=== PATIENT | female | born 2000 | race African-American/Black ===

== ENCOUNTER → 2022-03-31 14:11 | Outpatient (CLI) | payer OTHER, SELFPAY ==
[2022-03-31 17:09] LABS: Appearance Urine UA CLEAR; Bilirubin Urine UA NEGATIVE (NEGATIVE); Color Urine UA YELLOW; Glucose Urine UA NEGATIVE (Negative); Ketones Urine UA TRACE (NEGATIVE); Leukocyte Esterase Urine UA NEGATIVE (NEGATIVE); Nitrite Urine UA POSITIVE (Negative); Occult Blood Urine UA NEGATIVE (Negative); Protein Urine UA NEGATIVE (Negative); Urobilinogen Urine UA 0.2 E.U./dL (0.2)
[2022-03-31 17:10] LABS: Amorphous Sediment Urine 2+; Bacteria Urine Many (>30); RBC Urine None Seen (0-5/HPF); Squamous Epithelial Cell Urine 1-5 /HPF (0-5/HPF); WBC Urine 5-10/HPF (0-5/HPF)
[2022-03-31 18:05] LABS: Add Manual Diff / Slide Review NO; Basophils Absolute Auto 100 /uL (0-100); Basophils Percent Auto 1.4 % (0-2); Eosinophils Absolute Auto 100 /uL (0-450); Eosinophils Percent Auto 2.2 % (2-4); Hematocrit 33.4 % (36-46); Hemoglobin 10.8 g/dL (12.0-16.0); Lymphocytes Absolute Auto 2100 /uL (1100-4500); Lymphocytes Percent Auto 34.7 % (25-40); Mean Corpuscular HGB Conc 32.4 % (30-36); Mean Corpuscular Hemoglobin 25.8 PG (26-34); Mean Corpuscular Volume 79.5 fL (80-100); Monocytes Absolute Auto 800 /uL (0-900); Monocytes Percent Auto 12.9 % (3-14); Neutrophils Absolute Auto 3000 /uL (1500-7000); Neutrophils Percent Auto 48.8 % (50-75); Platelet Count 358 X10^3/uL (150-400); Red Blood Cell Count 4.19 X10^6/uL (4.0-5.2); Red Cell Distribution Width 17.6 % (11.6-14.8); White Blood Cell Count 6.1 X10^3/uL (4.5-11.0)
[2022-04-01 16:36] LABS: Hepatitis B Surface Antigen NEGATIVE s/c (NEGATIVE); Rubella Antibody IgG 6.8 IU/mL (>15)
[2022-04-01 16:51] LABS: HIV 1 & 2 Ab/Ag 4th Gen Combo NEGATIVE (NEGATIVE); Hep C Virus Ab w/Reflex Quant NEGATIVE s/c (NEGATIVE)
[2022-04-02 07:18] LABS: RPR Screen Non Reactive (Non Reactive); Varicella IgG Antibody 521 index (Immune >165)
== END ==
PROVIDERS: Referring Provider Obstetrics & Gynecology; Visit Provider Obstetrics & Gynecology
DX: Z34.01 Encounter for supervision of normal first pregnancy, first trimester (principal)
CPT/HCPCS: 36415; 80055; 81003; 81015; 86787; 86803; 86850; 86900; 86901; 87077; 87086; 87186; 87389

== ENCOUNTER → 2022-04-12 09:14 | Outpatient (CLI) | payer OTHER, SELFPAY ==
--- NOTE | 2022-04-12 09:17 | DI.US.S_ITS ---
PROCEDURE: US OB <= 14 WEEKS FETUS INDICATIONS: DATING OUTSIDE/PRIOR DATING DATA: Last menstrual period (LMP): 02/13/2022. LMP-based estimated date of delivery (RADHA): 11/20/2022. First dating scan (date and location): 04/12/2022. Estimated date of delivery (RADHA) from first dating scan: 11/18/2022. The calculations are made using the working RADHA of 11/20/2022. TECHNIQUE: Real-time scanning was performed of the fetus and maternal pelvic organs, with image documentation. Endovaginal scanning was also performed to better visualize the fetus and maternal ovaries. COMPARISON: None. FINDINGS: Embryo: There is a gestational sac in the uterine fundus containing a fetus with a crown-rump length of 2 centimeters. This corresponds to a gestational age of 8 weeks 4 days. heart rate is 168 beats per minute. The amnion demonstrates diffuse lacy internal echoes. Yolk sac noted. IMPRESSION: Single living intrauterine gestation with estimated gestational age 8 weeks 4 days. There is considerable intra-amniotic debris, which is an independent risk factor for early pre term in the 1st , and is also a risk factor for loss. We strive to produce accurate, complete, and clear reports of imaging services. To assist us in improving patient care, this report was composed using standard report templates and voice recognition software. Therefore, it may contain abnormal punctuation, insertions and/or omissions. Occasional wrong-word or sound-alike substitutions may occur. Though we review the report and make efforts to correct it, we do recommend that the report be read carefully in proper context to recognize any text inaccuracies. Dictated by: Sherif Bonilla M.D. on 04/12/2022 at 11:11 Approved by: Sherif Bonilla M.D. on 04/12/2022 at 11:15
== END ==
PROVIDERS: Referring Provider Obstetrics & Gynecology; Visit Provider Obstetrics & Gynecology
DX: Z34.01 Encounter for supervision of normal first pregnancy, first trimester (principal); Z3A.08 8 weeks gestation of pregnancy
CPT/HCPCS: 76801; 76817

== ENCOUNTER → 2022-05-10 11:29 | Outpatient (CLI) | payer OTHER, SELFPAY ==
[2022-05-10 13:35] LABS: Urine N gonorrhoeae NOT DETECTED
[2022-05-10 13:36] LABS: Urine Chlamydia NOT DETECTED
== END ==
PROVIDERS: Visit Provider Obstetrics & Gynecology
DX: Z34.01 Encounter for supervision of normal first pregnancy, first trimester (principal); Z3A.12 12 weeks gestation of pregnancy
CPT/HCPCS: 87491; 87591

== ENCOUNTER → 2022-05-14 15:41 | Outpatient (CLI) | payer OTHER, SELFPAY ==
[2022-05-14 16:22] LABS: Hematocrit 36.1 % (36-46); Hemoglobin 11.9 g/dL (12.0-16.0); Mean Corpuscular HGB Conc 32.9 % (30-36); Mean Corpuscular Hemoglobin 27.2 PG (26-34); Mean Corpuscular Volume 82.8 fL (80-100); Platelet Count 331 X10^3/uL (150-400); Red Blood Cell Count 4.36 X10^6/uL (4.0-5.2); Red Cell Distribution Width 19.6 % (11.6-14.8); White Blood Cell Count 5.6 X10^3/uL (4.5-11.0)
[2022-05-14 16:50] LABS: HEMOLYSIS < 15 (0-50); Iron 139 ug/dL (37-170)
[2022-05-14 17:00] LABS: Percent Iron Saturation 41 % (15-50); Total Iron Binding Capacity 342 ug/dL (265-497); Transferrin 283 mg/dL (206-381)
[2022-05-25 16:28] LABS: Interpretation INTERP
[2022-05-25 16:31] LABS: Hemoglobin Free 0.6 mg/dl
== END ==
PROVIDERS: Referring Provider Obstetrics & Gynecology; Visit Provider Obstetrics & Gynecology
DX: O99.019 Anemia complicating pregnancy, unspecified trimester (principal); R71.8 Other abnormality of red blood cells
CPT/HCPCS: 36415; 83021; 83051; 83540; 83550; 85027

== ENCOUNTER → 2022-06-07 11:26 | Outpatient (CLI) | payer OTHER, SELFPAY | PROVIDERS: Visit Provider Obstetrics & Gynecology | DX: Z34.02 Encounter for supervision of normal first pregnancy, second trimester (principal); Z3A.16 16 weeks gestation of pregnancy | CPT/HCPCS: 87077; 87086; 87186 ==

== ENCOUNTER → 2022-07-15 15:12 | Outpatient (CLI) | payer OTHER, SELFPAY ==
--- NOTE | 2022-07-15 15:13 | DI.US.S_ITS ---
PROCEDURE: US OB >= 14 WEEKS FETUS INDICATIONS: 20 Week Anatomy Scan OUTSIDE/PRIOR DATING DATA: Last menstrual period (LMP): February 13, 2022. LMP-based estimated date of delivery (RADHA): November 20, 2022. First dating scan (date and location): April 12, 2022. Estimated date of delivery (RADHA) from first dating scan: November 18, 2022. The calculations are made using the clinical RADHA of November 20, 2022. TECHNIQUE: Real-time scanning was performed of the fetus, with image documentation and biometric measurements. Endovaginal scanning: Not performed COMPARISON: None. FINDINGS: General: A single living intrauterine gestation is present. Presentation: Vertex. Placenta: Placental position is anterior , without previa. Amniotic fluid index: 13.7 cm, normal range is 5-24 cm. Single deepest vertical pocket is 4.1 cm. heart rate: 160 beats per minute. Maternal cervical canal: 4.6 cm long. Normal lower limit is 2.5 cm. biometrics: Biparietal diameter: 5.0 cm, 21 weeks and 2 days Head circumference: 18.6 cm, 20 weeks and 6 days Abdominal circumference: 15.6 cm, 20 weeks and 5 days Femur length: 4.0 cm, 23 weeks and 0 days Clinically estimated gestational age: 21 weeks and 5 days Composite gestational age from present scan: 21 weeks and 3 days Estimated weight and percentile: 441 g which correlates with the 41st percentile based off gestational age. Anatomic survey: Neuro: Ventricles are non-dilated at less than 10 mm. Cisterna magna is normal at 3-11 mm. Cerebellum is normal in size and morphology. Nuchal skin fold: Normal at less than 6 mm between 14-21 weeks gestational age. Face: Nose and lips appear unremarkable. facial profile not well visualized. Spine: No evidence for spina bifida. Heart: 4-chambered heart is present, with normal ventricular outflow tracts. Diaphragm: Diaphragm is intact. Stomach: Left-sided stomach is present. Kidneys: No hydronephrosis. Normal is less than 5 mm in 2nd trimester, less than 7 mm in 3rd trimester. Cord: 3-vessel cord has orthotopic insertion. Bladder: Normal in size. Extremities: All 4 extremities identified. IMPRESSION: Single living intrauterine gestation with estimated sonographic gestational age of approximately 21 weeks and 3 days versus approximately 21 weeks and 5 days based last menstrual period. Normal interval growth has occurred. Estimated weight of approximately 441 g which correlates with the 41st percentile. facial profile not well visualized on this examination. Otherwise, unremarkable routine second-trimester anatomy screening survey. Follow-up imaging recommended. We strive to produce accurate, complete, and clear reports of imaging services. To assist us in improving patient care, this report was composed using standard report templates and voice recognition software. Therefore, it may contain abnormal punctuation, insertions and/or omissions. Occasional wrong-word or sound-alike substitutions may occur. Though we review the report and make efforts to correct it, we do recommend that the report be read carefully in proper context to recognize any text inaccuracies. Dictated by: Alfa Block M.D. on 07/16/2022 at 8:38 Approved by: lAfa Block M.D. on 07/16/2022 at 8:42
== END ==
PROVIDERS: Referring Provider Obstetrics & Gynecology; Visit Provider Obstetrics & Gynecology
DX: Z34.02 Encounter for supervision of normal first pregnancy, second trimester (principal); Z3A.21 21 weeks gestation of pregnancy
CPT/HCPCS: 76811

== ENCOUNTER → 2022-08-19 16:12 | Outpatient (CLI) | payer OTHER, SELFPAY ==
[2022-08-19 17:41] LABS: Hematocrit 35.5 % (36-46); Hemoglobin 11.8 g/dL (12.0-16.0)
[2022-08-19 18:02] LABS: GTT (PREG) 1 Hour PP 50gm Dose 80 mg/dL (76-139)
== END ==
PROVIDERS: Referring Provider Obstetrics & Gynecology; Visit Provider Obstetrics & Gynecology
DX: Z34.02 Encounter for supervision of normal first pregnancy, second trimester (principal); Z3A.22 22 weeks gestation of pregnancy
CPT/HCPCS: 36415; 82950; 85014; 85018

== ENCOUNTER → 2022-09-06 14:52 | Outpatient (CLI) | payer OTHER, SELFPAY ==
[2022-09-06 15:08] LABS: Appearance Urine UA CLOUDY; Bilirubin Urine UA NEGATIVE (NEGATIVE); Color Urine UA YELLOW; Glucose Urine UA NEGATIVE (Negative); Ketones Urine UA NEGATIVE (NEGATIVE); Leukocyte Esterase Urine UA 2+ (NEGATIVE); Nitrite Urine UA NEGATIVE (Negative); Occult Blood Urine UA NEGATIVE (Negative); Protein Urine UA TRACE (Negative); Specific Gravity Urine UA 1.015 (1.000-1.035); Urobilinogen Urine UA 0.2 E.U./dL (0.2)
[2022-09-06 15:30] LABS: pH Urine UA 7.5 (4.5-8.0)
[2022-09-06 15:32] LABS: Bacteria Urine Few (2-10); Culture Indicated Urine Specimen Cultured; RBC Urine 0-1/HPF (0-5/HPF); Renal Epithelial Cells Urine 1-5/HPF (0-1/HPF); Squamous Epithelial Cell Urine 1-5 /HPF (0-5/HPF); Transitional Epi Cells Urine 1-5/HPF (0-5/HPF); WBC Urine 10-30/HPF (0-5/HPF)
== END ==
PROVIDERS: Referring Provider Specialist; Visit Provider Specialist
DX: Z34.01 Encounter for supervision of normal first pregnancy, first trimester (principal); R30.0 Dysuria
CPT/HCPCS: 81001; 87077; 87086; 87186

== ENCOUNTER → 2022-09-30 16:02 | Outpatient (CLI) | payer OTHER, SELFPAY | PROVIDERS: Visit Provider Obstetrics & Gynecology | DX: Z91.89 Other specified personal risk factors, not elsewhere classified (principal) | CPT/HCPCS: 87086 ==

== ENCOUNTER 2022-10-07 13:34 | Emergency (ER) | payer OTHER, SELFPAY ==
[2022-10-07 13:41] VITALS: BP 135/69; PULSE 105; RESP 15; TEMP 36.9; O2SAT 99; BMI 29.3
--- NOTE | 2022-10-07 13:59 | DI.US.S_ITS ---
PROCEDURE: US RENAL COMPLETE INDICATIONS: nephrolithiasis? pyelo? 8 months TECHNIQUE: Real-time scanning was performed of the kidneys and bladder, with image documentation. COMPARISON: None. FINDINGS: Kidneys: Kidneys are normal in size. Right kidney measures 12.3 cm long; left kidney measures 12.0 cm long. Right renal cortical thickness is 1.5 cm; left renal cortical thickness is 1.7 cm. Renal cortical echotexture is normal. Specifically, no suspicious areas of cortical echogenicity to suggest renal abscess. No perinephric fluid collections. No hydronephrosis or nephrolithiasis. No suspicious solid mass lesions. Bladder: Pre-void bladder volume is 17.9 mL. The patient was unable to void. Pre-void images demonstrate no intraluminal masses or stones. On pre-void images, bilateral ureteral jets are noted with color Doppler interrogation. (Of note, ureteral jets may not be detectable in up to 25% of cases due to insufficient differences in specific gravity between ureteral and bladder urine). Miscellaneous: No free pelvic fluid. IMPRESSION: 1. No sonographic evidence of nephrolithiasis or obstructive uropathy. 2. No sonographic evidence of renal abscess. Dictated by: Rody Dhillon M.D. on 10/07/2022 at 16:01 Approved by: Rody Dhillon M.D. on 10/07/2022 at 16:03
--- NOTE | 2022-10-07 14:01 | ED_ITS ---
HPI - Female Genitourinary <Mikaela Porras, [facility] - Last Filed: 10/07/22 16:07> General Chief complaint: Upper Respiratory Symptoms Stated complaint: Flu Sx Time Seen by Provider: 10/07/22 13:47 Source: patient Mode of arrival: Ambulatory History of Present Illness HPI Narrative: This is a 21-year-old female who is 8 and presents to the emergency department 2 days of nausea, vomiting, upper respiratory congestion, bilateral ear pain and fullness, and chills. She states she has not measured a fever, d enies any abdominal pain, denies low back pain flank pain, had a urinary tract infection a 09/06 grew E coli, was pansensitive, she is had 2 other urinary tract infections before this during this . She is not currently on antibiotics. Has a history of chlamydia infection from 2020. Patient was seen by Dr. Ceron on 09/30/2022 with a urine culture that grew out lactobacillus species. She did not receive another antibiotic prescription. Rubella not indicated. History of anemia on prior lab work. Most recent H&H is 11.8 and 35.5 from 08/19/2022. She denies flank pain, endorses occasional low back but did not have vomiting start until yesterday. Denies nausea at this time but states that she had vomiting this morning. Denies abnormal vaginal discharge. She states that she is been taking Robitussin for her congestion and cough. Denies shortness of breath, chest pain, difficulty breathing. Related Data Home Medications Medication Instructions Recorded Confirmed prenat.vits,daniel,[id number] 1 tab PO DAILY 03/30/22 09/30/22 Previous Rx's Medication Instructions Recorded prochlorperazine maleate 5 mg 5 mg PO Q8H PRN nausea and 05/11/22 tablet vomiting #20 tabs cefpodoxime 100 mg tablet 100 mg PO Q12H #10 tabs 09/08/22 amoxicillin 875 mg-potassium 1 tab PO BID 10 days #20 tabs 10/07/22 clavulanate 125 mg tablet cetirizine 10 mg capsule (Zyrtec) 10 mg PO DAILY PRN congestion #30 10/07/22 caps ondansetron 4 mg disintegrating 4 mg PO Q8H PRN nausea and 10/07/22 tablet vomiting #10 tabs Allergies Allergy/AdvReac Type Severity Reaction Status Date / Time Sulfa (Sulfonamide Allergy Intermediate Hives Verified 10/07/22 13:44 Antibiotics) Review of Systems <LULA Guardado - Last Filed: 10/07/22 16:07> Review of Systems ROS Unobtainable: All systems reviewed & are unremarkable except as noted in HPI and below Patient History <LULA Guardado - Last Filed: 10/07/22 16:07> Medical History Healthy adult Surgical History No pertinent past surgical history Family History Grandmother Multiple sclerosis Mother Heart attack Lung disease Hypertension Grandfather Heart disease Hypertension Kidney failure Diabetes mellitus Hyperlipidemia Father Healthy adult Grandmother Chronic bronchitis Grandmother Hyperlipidemia Hypertension Grandmother Multiple sclerosis alcohol intake frequency: holidays/special occasions only Substance Use Type: does not use Exam <LULA Guardado - Last Filed: 10/07/22 16:07> Narrative Exam Narrative: Reviewed vitals signs and nursing notes. General: Pleasant, sitting upright, in no acute distress, well groomed, afebrile HEENT: symmetrical facial expressions, dry mucous membranes, neck is supple bilateral TMs are pearly [place], no anterior cervical lymphadenopathy, congestion present, no sinus tenderness to palpation CV: Without lower extremity edema, S1-S2, mild tachycardia, warm extremities Respiratory: normal work of breathing, without tachypnea or hypoxia. GI: abdomen gravid, without CVA tenderness bilaterally MSK: moves all extremities, no weakness, normal tone, ambulatory without deficit Skin: brisk capillary refill, without rash or wound Neuro: normal speech and cognition, A&O x3 Initial Vital Signs Initial Vital Signs: Vital Signs Temperature 98.5 F 10/07/22 13:41 Pulse Rate 105 H 10/07/22 13:41 Respiratory Rate 15 10/07/22 13:41 Blood Pressure 135/69 10/07/22 13:41 Pulse Oximetry 99 10/07/22 13:41 Oxygen Delivery Method Room Air 10/07/22 13:41 <Kirby Fong DO - Last Filed: 10/07/22 19:45> Initial Vital Signs Initial Vital Signs: Vital Signs Temperature 98.5 F 10/07/22 13:41 Pulse Rate 105 H 10/07/22 13:41 Respiratory Rate 15 10/07/22 13:41 Blood Pressure 135/69 10/07/22 13:41 Pulse Oximetry 99 10/07/22 13:41 Oxygen Delivery Method Room Air 10/07/22 13:41 Course <LULA Guardado - Last Filed: 10/07/22 16:07> Orders Ordered: ED Orders 10/07/22 13:50 Chlamydia Gonorrhea PCR -URINE Stat Urine Culture Stat 10/07/22 13:52 UA Complete [Urinalysis and Microscopic] Stat 10/07/22 13:59 US renal complete Stat 10/07/22 14:07 CBC Auto Diff [Complete Blood Count AUTO DIFF] Stat CMP [Comprehensive Metabolic Panel] Stat CRP [C-Reactive Protein Quant] Stat Lipase Stat Magnesium Stat Respiratory Panel (Film Array) Stat 10/07/22 15:46 Wet Prep Tric BV Sangeeta Stat Discontinued Medications Amoxicillin/Clavulanate Potassium (Amoxicillin/Clav 875/125 Mg) 1 tab PO NOW ONE Stop: 10/07/22 14:08 Last Admin: 10/07/22 14:17 Dose: 1 tab Documented By: PRASAD Lactated Ringer's (Lactated Ringers) 1,000 mls @ 1,000 mls/hr IV BOLUS ONE Stop: 10/07/22 14:51 Last Infusion: 10/07/22 15:36 Dose: 0 mls/hr Documented By: Admin: 10/07/22 14:05 Dose: 1,000 mls/hr Documented By: AT Ondansetron HCl (Ondansetron 4 Mg/2 Ml Inj) 4 mg IV NOW ONE Stop: 10/07/22 13:53 Last Admin: 10/07/22 14:06 Dose: Not Given Documented By: AT Vital Signs Vital signs: Vital Signs - 8 hr 10/07/22 13:41 10/07/22 15:45 Temperature 98.5 F Pulse Rate 105 H 98 H Respiratory Rate 15 Blood Pressure 135/69 129/69 Pulse Oximetry 99 100 Oxygen Delivery Method Room Air Room Air <Kirby Fong DO - Last Filed: 10/07/22 19:45> Orders Ordered: ED Orders 10/07/22 13:50 Chlamydia Gonorrhea PCR -URINE Stat Urine Culture Stat 10/07/22 13:52 UA Complete [Urinalysis and Microscopic] Stat 10/07/22 13:59 US renal complete Stat 10/07/22 14:07 CBC Auto Diff [Complete Blood Count AUTO DIFF] Stat CMP [Comprehensive Metabolic Panel] Stat CRP [C-Reactive Protein Quant] Stat Lipase Stat Magnesium Stat Respiratory Panel (Film Array) Stat 10/07/22 15:46 Wet Prep Tric BV [place] Stat Discontinued Medications Amoxicillin/Clavulanate Potassium (Amoxicillin/Clav 875/125 Mg) 1 tab PO NOW ONE Stop: 10/07/22 14:08 Last Admin: 10/07/22 14:17 Dose: 1 tab Documented By: PRASAD Lactated Ringer's (Lactated Ringers) 1,000 mls @ 1,000 mls/hr IV BOLUS ONE Stop: 10/07/22 14:51 Last Infusion: 10/07/22 15:36 Dose: 0 mls/hr Documented By: Admin: 10/07/22 14:05 Dose: 1,000 mls/hr Documented By: AT Ondansetron HCl (Ondansetron 4 Mg/2 Ml Inj) 4 mg IV NOW ONE Stop: 10/07/22 13:53 Last Admin: 10/07/22 14:06 Dose: Not Given Documented By: AT Vital Signs Vital signs: Vital Signs - 8 hr 10/07/22 13:41 10/07/22 15:45 Temperature 98.5 F Pulse Rate 105 H 98 H Respiratory Rate 15 Blood Pressure 135/69 129/69 Pulse Oximetry 99 100 Oxygen Delivery Method Room Air Room Air MDM - Female Genitourinary <Mikaela Porras, [facility] - Last Filed: 10/07/22 16:07> Lab Data 10/07/22 14:07 10/07/22 14:07 Labs: Lab Results 10/07/22 10/07/22 10/07/22 Range/Units 13:50 13:50 14:07 WBC 6.5 (4.5-11.0) X10^3/uL RBC 3.81 L (4.0-5.2) X10^6/uL Hgb 11.2 L (12.0-16.0) g/dL Hct 33.4 L (36-46) % MCV 87.6 (80-100) fL MCH 29.5 (26-34) PG MCHC 33.7 (30-36) % RDW 15.7 H (11.6-14.8) % Plt Count 280 (150-400) X10^3/uL Neut % (Auto) 64.0 (50-75) % Lymph % (Auto) 14.9 L (25-40) % [place] % (Auto) 19.0 H (3-14) % Eos % (Auto) 1.3 L (2-4) % Baso % (Auto) 0.8 (0-2) % Neut # (Auto) 4200 (2114-7439) /uL Lymph # (Auto) 1000 L (9682-2281) /uL [place] # (Auto) 1200 H (0-900) /uL Eos # (Auto) 100 (0-450) /uL Baso # (Auto) 100 (0-100) /uL Sodium (137-145) mmol/L Potassium (3.4-5.1) mmol/L Chloride (98-107) mmol/L Carbon Dioxide (22-32) mmol/L BUN (7-17) mg/dL Creatinine (0.52-1.04) mg/dL Estimated GFR (>60) mL/min BUN/Creatinine Ratio (6-22) Glucose (70-100) mg/dL Calcium (8.4-10.2) mg/dL Magnesium (1.6-2.3) mg/dL Total Bilirubin (0.2-1.3) mg/dL AST (14-36) IU/L ALT (<35) IU/L Alkaline Phosphatase (38-126) U/L C-Reactive Protein (<1.0) mg/dL Total Protein (6.3-8.2) g/dL Albumin (3.5-5.0) g/dL Globulin (1.7-4.1) g/dL Albumin/Globulin Ratio (1.0-2.8) Lipase (23-300) U/L Urine Color Yellow Urine Appearance Clear Urine pH 6.5 (4.5-8.0) Ur Specific [place] 1.010 (1.000-1.035) Urine Protein Negative (Negative) Urine Glucose (UA) Negative (Negative) g/dL Urine Ketones Negative (NEGATIVE) Urine Occult Blood Trace-lysed (Negative) Urine Nitrate Negative (Negative) Urine Bilirubin Negative (NEGATIVE) Urine Urobilinogen 0.2 (0.2) E.U./dL Ur Leukocyte Esterase 2+ H (NEGATIVE) Urine RBC 1-5/hpf (0-5/HPF) Urine WBC 10-30/hpf H (0-5/HPF) Ur Squamous Epith Cells >30 /hpf H D (0-5/HPF) Urine Bacteria None seen (None) Ur Culture Indicated? Specimen cultured Chlamy pneumoniae PCR (Not Detect) Adenovirus (PCR) (Not Detect) B. pertussis DNA (PCR) (Not Detecte) B.parapertussis DNA PCR (Not Detecte) Ur Chlamydia DNA (PCR) Not detected Coronavirus OC43 (PCR) (Not Detect) Coronavirus HKU1 (PCR) (Not Detect) Coronavirus 229E (PCR) (Not Detect) SARS-CoV-2 (PCR) (Not Detecte) Coronavirus NL63 (PCR) (Not Detect) Human Metapneumovir PCR (Not Detect) Influenza Type A (PCR) (Not Detect) Influenza Type B (PCR) (Not Detect) M. pneumoniae (PCR) (Not Detect) Parainfluenza 1 (PCR) (Not Detect) Parainfluenza 2 (PCR) (Not Detect) Parainfluenza 3 (PCR) (Not Detect) Parainfluenza 4 (PCR) (Not Detect) RSV (PCR) (Not Detect) Entero/Rhino (PCR) (Not Detect) N gonorrhoeae DNA (PCR) Not detected 10/07/22 10/07/22 Range/Units 14:07 14:07 WBC (4.5-11.0) X10^3/uL RBC (4.0-5.2) X10^6/uL Hgb (12.0-16.0) g/dL Hct (36-46) % MCV (80-100) fL MCH (26-34) PG MCHC (30-36) % RDW (11.6-14.8) % Plt Count (150-400) X10^3/uL Neut % (Auto) (50-75) % Lymph % (Auto) (25-40) % [place] % (Auto) (3-14) % Eos % (Auto) (2-4) % Baso % (Auto) (0-2) % Neut # (Auto) (8623-9194) /uL Lymph # (Auto) (7021-5613) /uL [place] # (Auto) (0-900) /uL Eos # (Auto) (0-450) /uL Baso # (Auto) (0-100) /uL Sodium 134 L (137-145) mmol/L Potassium 3.8 (3.4-5.1) mmol/L Chloride 106 (98-107) mmol/L Carbon Dioxide 20 L (22-32) mmol/L BUN 3 L (7-17) mg/dL Creatinine 0.50 L (0.52-1.04) mg/dL Estimated GFR > 60 (>60) mL/min BUN/Creatinine Ratio 6.0 (6-22) Glucose 93 (70-100) mg/dL Calcium 8.6 (8.4-10.2) mg/dL Magnesium 1.6 (1.6-2.3) mg/dL Total Bilirubin 0.4 (0.2-1.3) mg/dL AST 32 (14-36) IU/L ALT 25 (<35) IU/L Alkaline Phosphatase 79 (38-126) U/L C-Reactive Protein 1.5 H (<1.0) mg/dL Total Protein 6.8 (6.3-8.2) g/dL Albumin 3.4 L (3.5-5.0) g/dL Globulin 3.4 (1.7-4.1) g/dL Albumin/Globulin Ratio 1.0 (1.0-2.8) Lipase 121 (23-300) U/L Urine Color Urine Appearance Urine pH (4.5-8.0) Ur Specific [place] (1.000-1.035) Urine Protein (Negative) Urine Glucose (UA) (Negative) g/dL Urine Ketones (NEGATIVE) Urine Occult Blood (Negative) Urine Nitrate (Negative) Urine Bilirubin (NEGATIVE) Urine Urobilinogen (0.2) E.U./dL Ur Leukocyte Esterase (NEGATIVE) Urine RBC (0-5/HPF) Urine WBC (0-5/HPF) Ur Squamous Epith Cells (0-5/HPF) Urine Bacteria (None) Ur Culture Indicated? Chlamy pneumoniae PCR Not detected (Not Detect) Adenovirus (PCR) Not detected (Not Detect) B. pertussis DNA (PCR) Not detected (Not Detecte) B.parapertussis DNA PCR Not detected (Not Detecte) Ur Chlamydia DNA (PCR) Coronavirus OC43 (PCR) Not detected (Not Detect) Coronavirus HKU1 (PCR) Not detected (Not Detect) Coronavirus 229E (PCR) Not detected (Not Detect) SARS-CoV-2 (PCR) Detected H (Not Detecte) Coronavirus NL63 (PCR) Not detected (Not Detect) Human Metapneumovir PCR Not detected (Not Detect) Influenza Type A (PCR) Not detected (Not Detect) Influenza Type B (PCR) Not detected (Not Detect) M. pneumoniae (PCR) Not detected (Not Detect) Parainfluenza 1 (PCR) Not detected (Not Detect) Parainfluenza 2 (PCR) Not detected (Not Detect) Parainfluenza 3 (PCR) Not detected (Not Detect) Parainfluenza 4 (PCR) Not detected (Not Detect) RSV (PCR) Not detected (Not Detect) Entero/Rhino (PCR) Not detected (Not Detect) N gonorrhoeae DNA (PCR) Imaging Data renal US: Radiologist's Impression: PROCEDURE:? US RENAL COMPLETE ? INDICATIONS:? nephrolithiasis? pyelo? 8 months ? TECHNIQUE:? Real-time scanning was performed of the kidneys and bladder, with image documentation.? ? COMPARISON:? None. ? FINDINGS:? ? Kidneys:? Kidneys are normal in size.? Right kidney measures 12.3 cm long; left kidney measures 12.0 cm long.? Right renal cortical thickness is 1.5 cm; left renal cortical thickness is 1.7 cm.? Renal cortical echotexture is normal.? Specifically, no suspicious areas of cortical echogenicity to suggest renal abscess.? No perinephric fluid collections.? No hydronephrosis or nephrolithiasis.? No suspicious solid mass lesions.? ? Bladder:? Pre-void bladder volume is 17.9 mL.? The patient was unable to void.? Pre-void images demonstrate no intraluminal masses or stones.? On pre-void images, bilateral ureteral jets are noted with color Doppler interrogation.? (Of note, ureteral jets may not be detectable in up to 25% of cases due to insufficient differences in specific gravity between ureteral and bladder urine).? ? Miscellaneous:? No free pelvic fluid.? ? IMPRESSION:? ? 1. No sonographic evidence of nephrolithiasis or obstructive uropathy. ? 2. No sonographic evidence of renal abscess.? ? ? Dictated by: Rody Dhillon M.D. on 10/07/2022 at 16:01 ? ? Approved by: Rody Dhillon M.D. on 10/07/2022 at 16:03 ? MDM Narrative Medical decision making narrative: Chief Complaint: Nausea, vomiting, congestion and ear pain Independent historian: Patient Differential diagnoses include but are not limited to: Nephrolithiasis causing recurrent UTI, pyelonephritis, obstructive uropathy, urinary tract infection, upper respiratory viral infection, otitis media, eustachian tube dysfunction, dehydration, recurrent UTI. I have independently reviewed the patient's vital signs and nursing notes as well as prior records if available. Pertinent lab findings reviewed: Urine dip is positive for leukocytes, nitrites and blood, gonorrhea and chlamydia are negative via urine PCR, respiratory panel is positive for COVID 19 Pertinent Imaging reviewed: Renal ultrasound is negative for acute obstructive uropathy, nephrolithiasis or evidence of renal abscess. Without hydronephrosis or perinephric fluid. Course of care: 1400, labs drawn, urine dip is positive for leukocytes and blood, sent down for UA and culture. RN reports that she did not give Zofran because patient states she is not nauseated. Patient told me that she has vomited today and last night and has history of hyperemesis. Urine culture from 09/30/2022 grew lactobacillus species, urine culture from 09/06/2022 grew E coli and was pansensitive Patient's wet prep was negative for trich, WBCs, clue cells or bacteria. Patient does not have systemic symptoms of illness, has been afebrile denied wanting the Zofran, does chills or vomiting, is p.o. tolerant this time, received Augmentin for UTI, did not have bilateral CVA tenderness or other systemic symptoms of illness. Received 1 L IV fluid. Encouraged use Tylenol as needed for pain, follow-up is scheduled for [address] Ceron. Will follow- up on urine culture. Patient understands that she has COVID illness, she is given a work note, encouraged to follow-up at her scheduled appointment and return if she has any worsening of her condition. Social considerations that may affect disposition: none Questions are addressed and there is agreement with the plan and for follow-up. Patient is appropriate for outpatient management. MIPS: This encounter doesn't have any diagnosis' associated with MIPS criteria. <Kirby DO Ajit - Last Filed: 10/07/22 19:45> Lab Data Labs: Lab Results 10/07/22 10/07/22 10/07/22 Range/Units 13:50 13:50 14:07 WBC 6.5 (4.5-11.0) X10^3/uL RBC 3.81 L (4.0-5.2) X10^6/uL Hgb 11.2 L (12.0-16.0) g/dL Hct 33.4 L (36-46) % MCV 87.6 (80-100) fL MCH 29.5 (26-34) PG MCHC 33.7 (30-36) % RDW 15.7 H (11.6-14.8) % Plt Count 280 (150-400) X10^3/uL Neut % (Auto) 64.0 (50-75) % Lymph % (Auto) 14.9 L (25-40) % [place] % (Auto) 19.0 H (3-14) % Eos % (Auto) 1.3 L (2-4) % Baso % (Auto) 0.8 (0-2) % Neut # (Auto) 4200 (1076-3683) /uL Lymph # (Auto) 1000 L (1159-6140) /uL [place] # (Auto) 1200 H (0-900) /uL Eos # (Auto) 100 (0-450) /uL Baso # (Auto) 100 (0-100) /uL Sodium (137-145) mmol/L Potassium (3.4-5.1) mmol/L Chloride (98-107) mmol/L Carbon Dioxide (22-32) mmol/L BUN (7-17) mg/dL Creatinine (0.52-1.04) mg/dL Estimated GFR (>60) mL/min BUN/Creatinine Ratio (6-22) Glucose (70-100) mg/dL Calcium (8.4-10.2) mg/dL Magnesium (1.6-2.3) mg/dL Total Bilirubin (0.2-1.3) mg/dL AST (14-36) IU/L ALT (<35) IU/L Alkaline Phosphatase (38-126) U/L C-Reactive Protein (<1.0) mg/dL Total Protein (6.3-8.2) g/dL Albumin (3.5-5.0) g/dL Globulin (1.7-4.1) g/dL Albumin/Globulin Ratio (1.0-2.8) Lipase (23-300) U/L Urine Color Yellow Urine Appearance Clear Urine pH 6.5 (4.5-8.0) Ur Specific [place] 1.010 (1.000-1.035) Urine Protein Negative (Negative) Urine Glucose (UA) Negative (Negative) g/dL Urine Ketones Negative (NEGATIVE) Urine Occult Blood Trace-lysed (Negative) Urine Nitrate Negative (Negative) Urine Bilirubin Negative (NEGATIVE) Urine Urobilinogen 0.2 (0.2) E.U./dL Ur Leukocyte Esterase 2+ H (NEGATIVE) Urine RBC 1-5/hpf (0-5/HPF) Urine WBC 10-30/hpf H (0-5/HPF) Ur Squamous Epith Cells >30 /hpf H D (0-5/HPF) Urine Bacteria None seen (None) Ur Culture Indicated? Specimen cultured Chlamy pneumoniae PCR (Not Detect) Adenovirus (PCR) (Not Detect) B. pertussis DNA (PCR) (Not Detecte) B.parapertussis DNA PCR (Not Detecte) Ur Chlamydia DNA (PCR) Not detected Coronavirus OC43 (PCR) (Not Detect) Coronavirus HKU1 (PCR) (Not Detect) Coronavirus 229E (PCR) (Not Detect) SARS-CoV-2 (PCR) (Not Detecte) Coronavirus NL63 (PCR) (Not Detect) Human Metapneumovir PCR (Not Detect) Influenza Type A (PCR) (Not Detect) Influenza Type B (PCR) (Not Detect) M. pneumoniae (PCR) (Not Detect) Parainfluenza 1 (PCR) (Not Detect) Parainfluenza 2 (PCR) (Not Detect) Parainfluenza 3 (PCR) (Not Detect) Parainfluenza 4 (PCR) (Not Detect) RSV (PCR) (Not Detect) Entero/Rhino (PCR) (Not Detect) N gonorrhoeae DNA (PCR) Not detected 10/07/22 10/07/22 Range/Units 14:07 14:07 WBC (4.5-11.0) X10^3/uL RBC (4.0-5.2) X10^6/uL Hgb (12.0-16.0) g/dL Hct (36-46) % MCV (80-100) fL MCH (26-34) PG MCHC (30-36) % RDW (11.6-14.8) % Plt Count (150-400) X10^3/uL Neut % (Auto) (50-75) % Lymph % (Auto) (25-40) % [place] % (Auto) (3-14) % Eos % (Auto) (2-4) % Baso % (Auto) (0-2) % Neut # (Auto) (4318-5629) /uL Lymph # (Auto) (7602-3982) /uL [place] # (Auto) (0-900) /uL Eos # (Auto) (0-450) /uL Baso # (Auto) (0-100) /uL Sodium 134 L (137-145) mmol/L Potassium 3.8 (3.4-5.1) mmol/L Chloride 106 (98-107) mmol/L Carbon Dioxide 20 L (22-32) mmol/L BUN 3 L (7-17) mg/dL Creatinine 0.50 L (0.52-1.04) mg/dL Estimated GFR > 60 (>60) mL/min BUN/Creatinine Ratio 6.0 (6-22) Glucose 93 (70-100) mg/dL Calcium 8.6 (8.4-10.2) mg/dL Magnesium 1.6 (1.6-2.3) mg/dL Total Bilirubin 0.4 (0.2-1.3) mg/dL AST 32 (14-36) IU/L ALT 25 (<35) IU/L Alkaline Phosphatase 79 (38-126) U/L C-Reactive Protein 1.5 H (<1.0) mg/dL Total Protein 6.8 (6.3-8.2) g/dL Albumin 3.4 L (3.5-5.0) g/dL Globulin 3.4 (1.7-4.1) g/dL Albumin/Globulin Ratio 1.0 (1.0-2.8) Lipase 121 (23-300) U/L Urine Color Urine Appearance Urine pH (4.5-8.0) Ur Specific [place] (1.000-1.035) Urine Protein (Negative) Urine Glucose (UA) (Negative) g/dL Urine Ketones (NEGATIVE) Urine Occult Blood (Negative) Urine Nitrate (Negative) Urine Bilirubin (NEGATIVE) Urine Urobilinogen (0.2) E.U./dL Ur Leukocyte Esterase (NEGATIVE) Urine RBC (0-5/HPF) Urine WBC (0-5/HPF) Ur Squamous Epith Cells (0-5/HPF) Urine Bacteria (None) Ur Culture Indicated? Chlamy pneumoniae PCR Not detected (Not Detect) Adenovirus (PCR) Not detected (Not Detect) B. pertussis DNA (PCR) Not detected (Not Detecte) B.parapertussis DNA PCR Not detected (Not Detecte) Ur Chlamydia DNA (PCR) Coronavirus OC43 (PCR) Not detected (Not Detect) Coronavirus HKU1 (PCR) Not detected (Not Detect) Coronavirus 229E (PCR) Not detected (Not Detect) SARS-CoV-2 (PCR) Detected H (Not Detecte) Coronavirus NL63 (PCR) Not detected (Not Detect) Human Metapneumovir PCR Not detected (Not Detect) Influenza Type A (PCR) Not detected (Not Detect) Influenza Type B (PCR) Not detected (Not Detect) M. pneumoniae (PCR) Not detected (Not Detect) Parainfluenza 1 (PCR) Not detected (Not Detect) Parainfluenza 2 (PCR) Not detected (Not Detect) Parainfluenza 3 (PCR) Not detected (Not Detect) Parainfluenza 4 (PCR) Not detected (Not Detect) RSV (PCR) Not detected (Not Detect) Entero/Rhino (PCR) Not detected (Not Detect) N gonorrhoeae DNA (PCR) Discharge Plan Departure Patient Disposition: Home Clinical Impression: COVID-19 Urinary tract infection Qualifiers: Urinary tract infection type: acute cystitis Hematuria presence: without hematuria Qualified Code(s): N30.00 - Acute cystitis without hematuria Instructions: Urinary Tract Infection, COVID-19 Activity Restrictions/Additional Instructions: *You have been diagnosed with a urinary tract infection. Please take this antibiotic twice a day for the next 10 days follow-up at your scheduled appointment on 10/14/2022. Stay hydrated, remember to drink fluids with electrolytes as well. I have given you a prescription of Zofran to use as needed for nausea and vomiting. Please take this so that you can stay hydrated if this happens again. If you do not have any improvement in 24 hours or if you have any worsening, please come back to the emergency department. Remember to take Tylenol as needed for your pain, I hope you feel better soon please follow- up with Dr. Colorado if you have ongoing urinary tract infection problems, he is urologist. Dr. Ceron will handle your antibiotic therapy regarding your urina ry tract infection from today but if this is complicated for some reason, I encourage you to see Dr. Colorado. Use Zyrtec as needed for your congestion, we will call you by a respiratory panel. *What to do: *Please continue to take your regular medications as directed. [ x] New medication prescriptions sent to your pharmacy: [[facility]] [ ] New medication written as a paper prescription [ ] No new medications given *Please follow up with your primary care provider in 2-3 days, call for an appointment. Let them know you were seen in the Emergency Department and that we asked that you be seen for follow-up. We will electronically transmit a record of today's note if your PCP is in our system *If you do not have a primary care provider please contact [phone] to establish care with one of the [facility] primary care providers. *Return to Emergency Department if you should have any new, worsening, or concerning symptoms, such as [fever greater than 101F, chills, worsening pain, persistent vomiting or other bothersome symptoms]. Prescriptions: New amoxicillin-pot clavulanate 875-125 mg tablet 1 tab PO BID 10 Days Qty: 20 0RF ondansetron 4 mg tablet,disintegrating 4 mg PO Q8H PRN (Reason: nausea and vomiting) Qty: 10 0RF Zyrtec 10 mg capsule 10 mg PO DAILY PRN (Reason: congestion) Qty: 30 0RF No Action cefpodoxime 100 mg tablet 100 mg PO Q12H Qty: 10 0RF Rx Instructions: must administer with a meal/food prochlorperazine maleate 5 mg tablet 5 mg PO Q8H PRN (Reason: nausea and vomiting) Qty: 20 2RF prenat.vits,daniel,[id number] Tablet 1 tab PO DAILY Referrals: Provider,Emanuel ROBLES [Primary Care Provider] - Kevyn Colorado MD [Physician] - (For recurrent urinary tract infection) Alan Ceron MD [Physician] - Stand Alone Forms: Patient Portal/API, Work Release Note <Kirby Fong DO - Last Filed: 10/07/22 19:45> Cosign ED Attending Celeste Attestation: I was immediately available in the department for consultation. Documentation has been reviewed. I agree with assessment and plan.
[2022-10-07] MEDS: LACTATED RINGERS 1,000 ML 1000 ML IV (14:05)
[2022-10-07 14:10] LABS: Appearance Urine UA CLEAR; Bilirubin Urine UA NEGATIVE (NEGATIVE); Color Urine UA YELLOW; Glucose Urine UA NEGATIVE (Negative); Ketones Urine UA NEGATIVE (NEGATIVE); Leukocyte Esterase Urine UA 2+ (NEGATIVE); Nitrite Urine UA NEGATIVE (Negative); Occult Blood Urine UA TRACE-LYSED (Negative); Protein Urine UA NEGATIVE (Negative); Urobilinogen Urine UA 0.2 E.U./dL (0.2)
[2022-10-07 14:13] LABS: pH Urine UA 6.5 (4.5-8.0)
[2022-10-07 14:14] LABS: Add Manual Diff / Slide Review NO; Basophils Absolute Auto 100 /uL (0-100); Basophils Percent Auto 0.8 % (0-2); Eosinophils Absolute Auto 100 /uL (0-450); Eosinophils Percent Auto 1.3 % (2-4); Hematocrit 33.4 % (36-46); Hemoglobin 11.2 g/dL (12.0-16.0); Lymphocytes Absolute Auto 1000 /uL (1100-4500); Lymphocytes Percent Auto 14.9 % (25-40); Mean Corpuscular HGB Conc 33.7 % (30-36); Mean Corpuscular Hemoglobin 29.5 PG (26-34); Mean Corpuscular Volume 87.6 fL (80-100); Monocytes Absolute Auto 1200 /uL (0-900); Neutrophils Absolute Auto 4200 /uL (1500-7000); Platelet Count 280 X10^3/uL (150-400); Red Blood Cell Count 3.81 X10^6/uL (4.0-5.2); Red Cell Distribution Width 15.7 % (11.6-14.8); White Blood Cell Count 6.5 X10^3/uL (4.5-11.0)
[2022-10-07 14:15] LABS: Bacteria Urine None Seen; Culture Indicated Urine Specimen Cultured; RBC Urine 1-5/HPF (0-5/HPF); Squamous Epithelial Cell Urine >30 /HPF (0-5/HPF); WBC Urine 10-30/HPF (0-5/HPF)
[2022-10-07] MEDS: AMOXICILLIN/CLAV 875/125 MG 1 TAB PO (14:17)
[2022-10-07 14:28] LABS: Alanine Aminotransferase 25 IU/L (<35); Albumin 3.4 g/dL (3.5-5.0); Alkaline Phosphatase 79 U/L (38-126); Aspartate Aminotransferase 32 IU/L (14-36); Bilirubin Total 0.4 mg/dL (0.2-1.3); Blood Urea Nitrogen 3 mg/dL (7-17); Calcium 8.6 mg/dL (8.4-10.2); Carbon Dioxide 20 mmol/L (22-32); Chloride 106 mmol/L (98-107); Estimated Glomerular Filt Rate > 60 mL/min (>60); Globulin 3.4 g/dL (1.7-4.1); Glucose 93 mg/dL (70-100); HEMOLYSIS < 15 (0-50); Lipase 121 U/L (23-300); Magnesium 1.6 mg/dL (1.6-2.3); Potassium 3.8 mmol/L (3.4-5.1); Sodium 134 mmol/L (137-145); Total Protein 6.8 g/dL (6.3-8.2)
[2022-10-07 15:38] LABS: Urine N gonorrhoeae NOT DETECTED
[2022-10-07 15:45] VITALS: BP 129/69; PULSE 98; O2SAT 100
[2022-10-07 15:45] LABS: Urine Chlamydia NOT DETECTED
[2022-10-07 15:56] LABS: Adenovirus Not Detected (Not Detect)
[2022-10-07 15:57] LABS: B. parapertussis Not Detected (Not Detecte); Bordetella pertussis Not Detected (Not Detecte); Chlamydophila pneumoniae Not Detected (Not Detect); Coronavirus 229E Not Detected (Not Detect); Coronavirus HKU1 Not Detected (Not Detect); Coronavirus NL 63 Not Detected (Not Detect); Coronavirus OC43 Not Detected (Not Detect); Human Metapneumovirus Not Detected (Not Detect); Human Rhinovirus/Enterovirus Not Detected (Not Detect); Influenza A Not Detected (Not Detect); Influenza B Not Detected (Not Detect); Mycoplasma pneumoniae Not Detected (Not Detect); Parainfluenza Virus 1 Not Detected (Not Detect); Parainfluenza Virus 2 Not Detected (Not Detect); Parainfluenza Virus 3 Not Detected (Not Detect); Parainfluenza Virus 4 Not Detected (Not Detect); Respiratory Syncytial Virus Not Detected (Not Detect); SARS- CoV-2 Detected (Not Detecte)
[2022-10-07 16:10] LABS: C-Reactive Protein Quant 1.5 mg/dL (<1.0)
== END 2022-10-07 15:46 | disposition home or self-care (01) ==
PROVIDERS: Emergency Provider Nurse Practitioner Critical Care Medicine
DX: U07.1 COVID-19 (principal); N30.90 Cystitis, unspecified without hematuria; B96.20 Unspecified Escherichia coli [E. coli] as the cause of diseases classified elsewhere
CPT/HCPCS: 36415; 76770; 80053; 81001; 83690; 83735; 85025; 86140; 87077; 87086; 87186; 87210; 87491; 87591; 87633; 99284

== ENCOUNTER → 2022-10-27 12:24 | Outpatient (CLI) | payer OTHER, SELFPAY ==
[2022-10-28 15:03] LABS: Strep Grp B PCR NEG for Grp B Strep
== END ==
PROVIDERS: Visit Provider Obstetrics & Gynecology
DX: Z34.03 Encounter for supervision of normal first pregnancy, third trimester (principal); Z3A.36 36 weeks gestation of pregnancy
CPT/HCPCS: 87653

== ENCOUNTER → 2022-11-09 14:29 | Outpatient (CLI) | payer OTHER, SELFPAY ==
[2022-11-09 20:11] LABS: Urine N gonorrhoeae NOT DETECTED
[2022-11-09 20:15] LABS: Urine Chlamydia NOT DETECTED
== END ==
PROVIDERS: Visit Provider Obstetrics & Gynecology
DX: Z34.03 Encounter for supervision of normal first pregnancy, third trimester (principal); Z86.19 Personal history of other infectious and parasitic diseases
CPT/HCPCS: 87491; 87591

== ENCOUNTER 2022-11-21 06:47 | Inpatient (IN) | payer OTHER, SELFPAY ==
[2022-11-21 09:12] VITALS: BP 129/76
[2022-11-21 09:16] LABS: Add Manual Diff / Slide Review NO; Basophils Absolute Auto 100 /uL (0-100); Basophils Percent Auto 0.7 % (0-2); Eosinophils Absolute Auto 100 /uL (0-450); Eosinophils Percent Auto 1.4 % (2-4); Hematocrit 34.6 % (36-46); Hemoglobin 11.6 g/dL (12.0-16.0); Lymphocytes Absolute Auto 2500 /uL (1100-4500); Lymphocytes Percent Auto 32.4 % (25-40); Mean Corpuscular HGB Conc 33.4 % (30-36); Mean Corpuscular Hemoglobin 29.3 PG (26-34); Mean Corpuscular Volume 87.6 fL (80-100); Monocytes Absolute Auto 1000 /uL (0-900); Monocytes Percent Auto 13.1 % (3-14); Neutrophils Absolute Auto 4000 /uL (1500-7000); Neutrophils Percent Auto 52.4 % (50-75); Platelet Count 374 X10^3/uL (150-400); Red Blood Cell Count 3.95 X10^6/uL (4.0-5.2); Red Cell Distribution Width 16.6 % (11.6-14.8); White Blood Cell Count 7.7 X10^3/uL (4.5-11.0)
[2022-11-21] MEDS: LACTATED RINGERS 1,000 ML 100 ML IV ×2 (10:45→23:38)
--- NOTE | 2022-11-21 12:18 | P.HPOB_ITS ---
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 Pt reports feeling a gush of fluid around 5:30am. She has continued to leak since then. No vaginal bleeding. She is having mild cramping. She is feeling her baby move regularly. The pt had significant nausea/vomiting at the start of her , but no other significant complications. The pts partner has sickle cell trait, but the pt tested negative. care: good care, initiated at week # (12) and pounds weight gain (43) Dating criteria OB: LMP confirmed by 1st trimester US Ultrasounds: normal 1st trimester US and normal mid trimester US Obstetrical complications: none Medical complications OB: none Preadmission Labs Last OB Lab Results: Blood Type O Positive 11/21/22 08:10 Antibody Screen Negative 11/21/22 08:10 Hematocrit 34.6 % (36-46) L 11/21/22 08:10 Hemoglobin 11.6 g/dL (12.0-16.0) L 11/21/22 08:10 Hepatitis B Surface Antigen Negative s/c (NEGATIVE) 03/31/22 14 :16 Hepatitis C Antibody Negative s/c (NEGATIVE) 03/31/22 14:16 Rubella Antibody 6.8 IU/mL (>15) L 03/31/22 14:16 Varicella-Zoster IgG Antibody 521 index (Immune >165) 03/31/22 14:16 Glucose 1 Hour 80 mg/dL (76-139) 08/19/22 16:26 Group B Streptococcus (PCR) Neg for grp b strep 10/27/22 12:24 -: Chlamydia screen: negative, Gonorrhea screen: negative and Urine: positive (E coli) Genetic Screens: Cell-free DNA: Normal External Labs -: Urine: positive (E coli) Evaluation Evaluation Baseline heart rate: 130 Variability: Moderate (11-25) monitor accelerations: Present Monitor Decelerations: Absent Contraction Frequency (minutes): 6 Uterine Contraction Intensity: Mild Status: Category l Dilation (cm): 1.5 Effacement (%): 90 Dilation: 1-2 cm Effacement: >/=80% station: -2 Position of cervix: posterior Consistency: soft Jade score: 7 PFSH Medical History Healthy adult Surgical History No pertinent past surgical history Family History Grandmother Multiple sclerosis Mother Heart attack Lung disease Hypertension Grandfather Heart disease Hypertension Kidney failure Diabetes mellitus Hyperlipidemia Father Healthy adult Grandmother Chronic bronchitis Grandmother Hyperlipidemia Hypertension Grandmother Multiple sclerosis Social History marital status: unmarried,single number of children: 0 household members: none lives independently: Yes caregiver/support person: No housing: apartment pets and animals: No education level: high school occupational status: employed current occupational 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/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 ) special reji needs: No travel history: recent ([place] and [place]) seatbelt use: always water heater temp set < 120 deg: Yes working smoke detector in home: Yes fire extinguisher in home: No (Encouraged to purchase one) carbon monox detector in home: Yes firearms in home: No do you feel safe at home: Yes Smoking Status: Never smoker second hand exposure: No alcohol intake: former (8-10/week prior to ) substance use type: does not use during the past year weight has: other (flucutates ~10 lb) well-balanced diet: rarely or never daily servings fruits/ve-1 caffeine: No Type(s) of exercise: regular exercise and weight lifting frequency: 3-4 times per week Meds Home Medications and Allergies Home Medications Medication Instructions Recorded Confirmed Type prenat.vits,daniel,erl-gvkv-nhwou 1 tab PO DAILY 03/30/22 11/21/22 History cetirizine 10 mg capsule (Zyrtec) 10 mg PO DAILY PRN congestion #30 10/07/22 11/21/22 Rx caps ondansetron 4 mg disintegrating 4 mg PO Q8H PRN nausea and 10/07/22 11/21/22 Rx tablet vomiting #10 tabs nitrofurantoin macrocrystal 100 mg 100 mg PO .q PM #30 caps 10/14/22 11/21/22 Rx capsule (Macrodantin) Allergies Allergy/AdvReac Type Severity Reaction Status Date / Time Sulfa (Sulfonamide Allergy Intermediate Hives Verified 11/16/22 11:56 Antibiotics) OB Exam Narrative Exam Narrative: Gen: NAD, sitting comfortably in bed, appears well CV: RRR, no murmurs Resp: clear to auscultation bilaterally Abd: soft, nontender, gravid Ext: no edema Objective Labs 11/21/22 08:10 Labs: Laboratory Results - last 24 hr 11/21/22 11/21/22 08:10 08:10 WBC 7.7 RBC 3.95 L Hgb 11.6 L Hct 34.6 L MCV 87.6 MCH 29.3 MCHC 33.4 RDW 16.6 H Plt Count 374 Neut % (Auto) 52.4 Lymph % (Auto) 32.4 [place] % (Auto) 13.1 Eos % (Auto) 1.4 L Baso % (Auto) 0.7 Neut # (Auto) 4000 Lymph # (Auto) 2500 [place] # (Auto) 1000 H Eos # (Auto) 100 Baso # (Auto) 100 Blood Type O Positive Antibody Screen Negative Assessment and Plan Assessment and Plan Assessment and Plan narrative: 22yo at 40w1d here with PROM at home. GBS negative, Rh positive. No complications with . - Expectant management, anticipate SVT - FHT reassuring - Epidural for pain control when desired - GBS negative, no prophylaxis indicated - Discussed pitocin augmentation, no need to initiate at this time but can if desired. Pt would like to eat and then start pitocin.
[2022-11-21] MEDS: OXYTOCIN PREMIX 30 UNIT/500 ML PLAST..BAG IV (14:15)
--- NOTE | 2022-11-21 19:39 | PM.OBPNLAB ---
Date/Time Date Patient Seen: 11/21/22 Time Patient Seen: 19:40 Pain Control Pain control: tolerating well Pelvic Exam Dilation (cm): 3 Effacement (%): 90 station: -1 Amniotic membrane status: Ruptured Comments: After informed consent, forebag ruptured with clear fluid present. Contractions Monitor mode: External Pitocin rate (mU/min): 4 Contraction frequency (min): 2 Contraction intensity: Mild Status status: Category l Heart Rate Baseline: 130 Monitor Accelerations: Present Monitor Decelerations: Absent Assessment and Plan Comments: 22yo at 40w1d here with PROM at home.? GBS negative, Rh positive.? No complications with . Pitocin initiated at pts request, now making cervical change. Forebag ruptured now. - Expectant management, anticipate SVT - FHT reassuring - Epidural for pain control when desired - GBS negative, no prophylaxis indicated - Will turn off pitocin due to frequency of contractions. Will re-initiate if without cervical change in 2 hours or contractions taper off.
[2022-11-21] MEDS: ONDANSETRON 4 MG/2 ML INJ IV (23:37)
[2022-11-21] MEDS: fentaNYL 100 MCG/2 ML INJ 50 MCG IV (23:37)
[2022-11-22] MEDS: fentaNYL 100 MCG/2 ML INJ 50 MCG IV (05:27)
[2022-11-22] MEDS: FENT 2MCG/ML BUPIV 0.125% EPI 200 MCG/100 ML PLAST..BAG 8 MCG EPIDURAL (08:30)
--- NOTE | 2022-11-22 10:50 | PM.OBPNLAB ---
Date/Time Date Patient Seen: 11/22/22 Pain Control Pain control: epidural Pelvic Exam Dilation (cm): 4 Effacement (%): 100 station: -2 Amniotic membrane status: Ruptured Contractions Monitor mode: External Pitocin rate (mU/min): 2 Contraction frequency (min): 5 Contraction pattern: Regular Intrauterine tone measurement: 70 Status status: Category l Heart Rate Baseline: 130 Monitor Accelerations: Present Monitor Decelerations: Absent Monitor Variability: Moderate Assessment and Plan Comments: 22yo at 40w1d here with PROM at home.? GBS negative, Rh positive.? No complications with .? Slow to progress thus far. IUPC placed to help with pitocin titration, as previously only able to go to 4mU due to frequency of contractions. No signs of chorioamnionitis at this time. - Expectant management, anticipate SVT - FHT reassuring - Epidural in place for pain control
--- NOTE | 2022-11-22 15:00 | PC.NURSE ---
18G 1.16in ultrasound guided IV placed without any complications. primary RN at bedside. no blood was drawn from the IV. transparent tegaderm placed with additional tape. IV patent.
--- NOTE | 2022-11-22 18:18 | PM.OBPRVD ---
Labor & Delivery Delivery date: 11/22/22 Cervical ripening method: none Induction method: per pitocin protocol Delivery augmentation: rupture of membranes Delivery monitor: external FHT and internal uterine Route of delivery: Episiotomy description: None L&D Laceration Description: None Quantitative Blood Loss: 1,200 Anesthesia Type: Epidural Complications: hemorrhage Narrative: PROCEDURE: at 40w1d presented with PROM at 5:30am on 11/21 and was admitted to Labor and Delivery. The patient progressed through the 1st stage over 7 hours. The pt was initiated on pitocin. AROM of her forebag was performed with clear fluid present. Pain was controlled with an epidural. Due to no significant progress, IUPC was placed and pitocin was titrated to adequate MVUs. The patient progressed through the 2nd stage over 31 minutes and delivered a viable female infant in direct OA position with APGARs 8/9 at 17:51 via . Total ROM 36hrs prior to delivery. The cord was cut and clamped after it stopped pulsating. The placenta delivered with gentle cord traction and appeared complete. The pt had heavy bleeding after delivery. Bimanual exam revealed amniotic membranes protruding from her cervix. These were unable to be removed manually. Sterile speculum was placed, and membranes removed successfully with ring forceps. The pts bleeding them improved significantly, with fundus firm. The perineum and vagina were inspected with no lacerations. Needle and sponge counts were correct.? The vagina was inspected and no items were left in situ. Yumiko was doing well with Amoria, her and her partner, María Elena at bedside. PREPROCEDURE DIAGNOSIS: Intrauterine at 40w2d GBS negative RH positive POSTPROCEDURE DIAGNOSIS: Intrauterine at 40w2d, delivered Same as preprocedure hemorrhage Baby 1: Infant gender: Female Presentation: vertex Placenta delivery description: Spontaneous and Manual Removal (of amniotic membranes) Cord Vessel Description: 3 Vessels score (1 min): 8 score (5 min): 9 weight: 7 lb 12.552 oz Plan for aftercare: Routine care
[2022-11-22] MEDS: DERMOPLAST SPRAY 20% 60 ML 1 SPRAY TOP (19:36)
[2022-11-22] MEDS: ACETAMINOPHEN 325 MG TABLET 650 MG PO (19:36)
[2022-11-22] MEDS: IBUPROFEN 600 MG TABLET PO (19:36)
[2022-11-22] MEDS: LANOLIN OINT 7 GM 1 APPLIC TOP (19:37)
[2022-11-23] MEDS: ACETAMINOPHEN 325 MG TABLET 650 MG PO (03:05)
[2022-11-23] MEDS: IBUPROFEN 600 MG TABLET PO (03:05)
[2022-11-23 06:10] LABS: Add Manual Diff / Slide Review NO; Basophils Absolute Auto 100 /uL (0-100); Basophils Percent Auto 0.6 % (0-2); Eosinophils Absolute Auto 100 /uL (0-450); Eosinophils Percent Auto 1.1 % (2-4); Hematocrit 25.9 % (36-46); Hemoglobin 8.8 g/dL (12.0-16.0); Lymphocytes Absolute Auto 2900 /uL (1100-4500); Lymphocytes Percent Auto 27.1 % (25-40); Mean Corpuscular HGB Conc 33.8 % (30-36); Mean Corpuscular Hemoglobin 29.1 PG (26-34); Monocytes Absolute Auto 1500 /uL (0-900); Monocytes Percent Auto 13.6 % (3-14); Neutrophils Absolute Auto 6300 /uL (1500-7000); Neutrophils Percent Auto 57.6 % (50-75); Platelet Count 270 X10^3/uL (150-400); Red Blood Cell Count 3.01 X10^6/uL (4.0-5.2); Red Cell Distribution Width 16.4 % (11.6-14.8); White Blood Cell Count 10.9 X10^3/uL (4.5-11.0)
[2022-11-23] MEDS: PRENATAL VIT,CALC/IRON/FOLIC 1 TABLET 1 TAB PO ×2 (10:28→11:14)
[2022-11-23] MEDS: FERROUS SULFATE 325 MG TABLET PO (11:13)
[2022-11-23] MEDS: DOCUSATE 100 MG CAPSULE PO (11:14)
[2022-11-23] MEDS: IRON SUCROSE 300 MG in SODIUM CHLORIDE 0.9% 250 ML 176.667 MG IV (13:37)
[2022-11-23 15:55] VITALS: BP 107/65; PULSE 87; RESP 18; TEMP 36.3
--- NOTE | 2022-11-23 16:12 | P.DS_ITS ---
Discharge Providers Provider Date of admission: 11/21/22 06:47 Discharge Date: 11/23/22 Primary care physician: Emanuel ROBLES Provider Consults: 11/21/22 09:06 Consult to Anesthesiology Urgent Comment: Consulting Provider: Anesthesiologist Reason for consultation: Epidural 11/23/22 18:17 Consult to First Crusher Routine Comment: Discharge provider: Alan Ceron MD Summary Hospital Course Date Patient Seen: 11/23/22 Time Patient Seen: 16:12 Diagnoses: Intrauterine gestation, 40+ 2 weeks gestational age, delivered by spontaneous vaginal Anemia, chronic Hospital Course: Yumiko was admitted on the afternoon of 11/21/2022 after experiencing spontaneous rupture membranes early on the morning of 11/21/2022. Remaining for greene were ruptured and Pitocin augmentation initiated when she failed to labor effectively and a spontaneous basis. The patient progressed well with an epidural in place and late on the afternoon of 11/22/2022 delivered a viable female infant with Apgars of 8/9 and a weight of 7 lb 12.5 oz (3531 g). The patient did not sustain any obstetrical lacerations but did have significant bleeding following delivery due to atony which was rapidly corrected with pharmacologic agents. First morning hemoglobin and hematocrit were 8.8 and 25.9 respectively which is consistent with observed delivery losses. Patient is asymptomatic and received 300 mg of iron sucrose intravenously prior to discharge. Following delivery both mother and baby have done extremely well with the mother experiencing prompt return of bowel and bladder function, she is ambulating independently, tolerating regular diet, and her pain is well controlled with oral pain medications. She will be discharged at this time to home in an afebrile normotensive condition after counseling regarding precautionary symptoms, limitations activity, medications, and plans for follow- up which will be in 6 weeks. Medications at discharge will include resumption of all pre delivery medications including vitamins, iron, and vitamin- C. In addition the patient will be discharged with ibuprofen 600 mg p.o. q.6 hours as needed pain. No decision regarding contraception has been made at the time of discharge. Peripartum Data Infant Delivery Method: Natural Vaginal Laceration Description: None Episiotomy description: None complications: none [place] 1: Gender: Female Disposition of : home Status at Discharge Cognitive/behavioral status at discharge: oriented Functional status at discharge: independent ambulation Overall status at discharge: patient is progressing back to baseline Time Spent with Patient Time attestation: Total time spent providing and/or coordinating discharge services: Time spent: Less than 30 minutes Objective Labs 11/23/22 06:00 Labs: Laboratory Results - last 24 hr 11/23/22 06:00 WBC 10.9 RBC 3.01 L Hgb 8.8 L Hct 25.9 L MCV 86.0 MCH 29.1 MCHC 33.8 RDW 16.4 H Plt Count 270 Neut % (Auto) 57.6 Lymph % (Auto) 27.1 [place] % (Auto) 13.6 Eos % (Auto) 1.1 L Baso % (Auto) 0.6 Neut # (Auto) 6300 Lymph # (Auto) 2900 [place] # (Auto) 1500 H Eos # (Auto) 100 Baso # (Auto) 100 Exam Vital Signs (past 8 hours): - 11/23/22 15:55 Temperature 97.3 F L Pulse Rate 87 Respiratory Rate 18 Blood Pressure 107/65 Const General: cooperative and comfortable Nutritional Appearance: average body habitus Orientation: alert and oriented x3 HENMT Head: normal to inspection, atraumatic and abrasion Ears: hearing grossly normal bilaterally Face and sinus: face symmetric Eyes General: appearance normal, both eyes and all related structures Conjunctivae: conjunctivae normal Sclera: sclerae normal EOM: EOM intact bilaterally Neck Neck: normal visual inspection Resp Effort & Inspection: normal respiratory effort and able to speak in complete sentences GI Inspection: normal to inspection Palpation: soft, no hepatosplenomegaly, mass (Firm, minimally tender fundus, U - 4) and tender (Mild, diffuse post-delivery tenderness) External Female Exam: other (No significant bleeding noted) Extrem General: no calf tenderness Psych Appearance: grossly normal Mental Status: mental status grossly normal Speech and Movement: speech and movement normal Mood: congruent mood Affect: normal affect Attitude: cooperative Thought Process: normal Thought Content: normal Judgment: judgment good Discharge Plan Discharge Plan Patient Disposition: Home Provider Discharge Comment: Please review the written instructions you received when you were discharged from the hospital. Your follow-up visit will be 6 weeks after your delivery and I look forward to seeing you then. If however in the meanwhile, you have any issues, concerns, or questions, please contact me either through the office phone at [phone], or via the patient portal. Discharge orders & Medications Prescriptions: New ibuprofen 600 mg Tablet 600 mg PO Q6HR PRN (Reason: Pain, Mild (1-3)) Qty: 60 2RF Continued prenat.vits,daniel,gox-[id number] Tablet 1 tab PO DAILY nitrofurantoin macrocrystal [Macrodantin] 100 mg capsule 100 mg PO .q PM Qty: 30 3RF Rx Instructions: must administer with a meal/food ondansetron 4 mg tablet,disintegrating 4 mg PO Q8H PRN (Reason: nausea and vomiting) Qty: 10 0RF Zyrtec 10 mg capsule 10 mg PO DAILY PRN (Reason: congestion) Qty: 30 0RF Medication counseling provided by Pharmacist: No Follow up/Referrals: ProviderEmanuel [Primary Care Provider] - Discharge Health Status Multidrug resistant organism: No MDRO Diet/Activity/Treatments Diet: Diet as Tolerated Activity: As tolerated Other treatments: Yycn-ttu-[id number] Tylenol may be used for additional pain relief. An dygs-ohy-dfnvhtk iron tablet along with an yjzl-zmg-exglexj vitamin- C tablet daily is recommended for the 30 days following delivery. Wfqf-cvd-wkdidxs stool softeners and/or MiraLax may be used as needed for constipation. Skin/Wound/Dressing Care Report to your healthcare provider any signs of infection, such as:: chills, fever, increased pain, unusual drainage and unusual redness Dressing: N/A Visit Report/Discharge Packet Instructions: DI for Labor and Delivery, Vaginal , DI for and Nipple Soreness Stand Alone Forms: Discharge: Care, Patient Portal/API, Stroke Signs & Symptoms Discharge Data Primary Care Provider: Emanuel Gordon
== END 2022-11-23 18:45 | disposition home or self-care (01) | DRG 806 ==
PROVIDERS: Family Medicine; Admitting Provider Obstetrics & Gynecology; Referring Provider Obstetrics & Gynecology; Visit Provider Obstetrics & Gynecology
DX: O42.12 Full-term premature rupture of membranes, onset of labor more than 24 hours following rupture (principal); D62 Acute posthemorrhagic anemia; Z37.0 Single live birth; O90.81 Anemia of the puerperium; Z3A.40 40 weeks gestation of pregnancy
CPT/HCPCS: 36415; 59050; 59400; 59409; 85025; 86850; 86900; 86901; G0379; J1756; J2405; J2590; J3010

== ENCOUNTER 2023-07-04 02:00 | Emergency (ER) | payer OTHER, SELFPAY ==
--- NOTE | 2023-07-04 02:10 | ED_ITS ---
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 She states that her partner ate some pork chops around 8:00 p.m. and by 10:00 p.m. they were both vomiting. She has had multiple episodes of emesis and continues to vomit while in the emergency department. She notes a couple of small episodes of diarrhea and feels that this is going to continue as well. She had been feeling well prior to dinner has no fevers or chills. No cough, palpitations headache. Miserable with the persistent vomiting. There has been no blood in either the emesis or the diarrhea. She complains of no vaginal discharge Related Data Home Medications Medication Instructions Recorded Confirmed ondansetron 8 mg disintegrating 8 mg PO Q8H PRN 06/23/23 06/28/23 tablet vitamin-ferrous sulfate tab PO 06/23/23 06/28/23 27 mg iron-folic acid 0.8 mg tablet Previous Rx's Medication Instructions Recorded doxylamine succinate 25 mg tablet See Rx Instructions PO BID PRN 07/06/23 nausea and vomiting 30 days #30 tabs pyridoxine (vitamin B6) 50 mg 50 mg PO TID PRN nausea and 07/06/23 tablet (Vitamin B-6) vomiting #90 tabs Allergies Allergy/AdvReac Type Severity Reaction Status Date / Time Sulfa (Sulfonamide Allergy Intermediate Hives Verified 06/23/23 13:05 Antibiotics) Review of Systems Review of Systems Narrative: Pertinent positive and negative findings as per HPI Patient History Medical History (Updated 07/04/23 @ 03:16 by Nataliia Davey MD) COVID-19 Chlamydia (~2020) Healthy adult Surgical History No pertinent past surgical history Family History (Updated 06/23/23 @ 13:10 by Maggi Cast RN) Grandmother Multiple sclerosis Mother Heart attack Lung disease Hypertension Grandfather Heart disease Hypertension Kidney failure Diabetes mellitus Hyperlipidemia Father Healthy adult Grandmother Chronic bronchitis Grandmother Hyperlipidemia Hypertension Social History marital status: unmarried,living together number of children: 1 household members: significant other, children and none lives independently: Yes caregiver/support person: No housing: apartment pets and animals: No education level: high school 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[employer]) current occupational exposures/hazards: No (Hazmat duties have stopped since learning of ) special reji needs: No travel history: recent (domestic only) seatbelt use: always water heater temp set < 120 deg: Yes working smoke detector in home: Yes fire extinguisher in home: No (Encouraged to purchase one) carbon monox detector in home: Yes firearms in home: No do you feel safe at home: Yes Smoking Status: Never smoker second hand exposure: No alcohol intake: former (2-3 glasses wine/week when not ) substance use type: does not use during the past year weight has: other (~20lb over pre-baby weight) well-balanced diet: rarely or never daily servings fruits/ve-1 caffeine: Yes (rarely) Type(s) of exercise: none frequency: 3-4 times per week Smoking Status: Never smoker alcohol intake frequency: holidays/special occasions only Substance Use Type: does not use Exam Initial Vital Signs Initial Vital Signs: Vital Signs Temperature 97.4 F L 07/04/23 02:17 Pulse Rate 95 H 07/04/23 02:17 Respiratory Rate 17 07/04/23 02:17 Blood Pressure 141/68 H 07/04/23 02:17 Pulse Oximetry 99 07/04/23 02:17 Oxygen Delivery Method Room Air 07/04/23 02:17 General: Healthy appearing, in no acute distress despite recurrent episodes of vomiting and an episode of diarrhea in the emergency department Able to give a complete and coherent history. HEENT: Moist mucous membranes, normal sclera with reactive pupils, Respiratory: Lungs are clear to auscultation, no wheezing no rales no rhonchi. Full and symmetrical air movement Cardiac: Regular rate and rhythm no murmurs no bruits Abdomen: Soft, nontender, good bowel tones, no flank pain. Bedside ultrasound shows single intrauterine fetus with heart rate at 160 results were shared with mother and real-time. Skin: Warm and dry, no rashes Neurologic: Grossly neurologically intact with no obvious asymmetries or abnormalities Extremities: No trauma, well perfused Psych: Cooperative, appropriate insight and affect Course Orders Ordered: Discontinued Medications Sodium Chloride (Normal Saline 0.9%) 1,000 mls @ 1,000 mls/hr IV BOLUS ONE Stop: 07/04/23 03:18 Last Admin: 07/04/23 02:28 Dose: 1,000 mls/hr Documented By: DANELLE Ondansetron HCl (Ondansetron 4 Mg Odt) 4 mg SL NOW ONE Stop: 07/04/23 02:14 Last Admin: 07/04/23 02:20 Dose: 4 mg Documented By: DANELLE Ondansetron HCl (Ondansetron 4 Mg/2 Ml Inj) 4 mg IV NOW ONE Stop: 07/04/23 02:20 Last Admin: 07/04/23 03:25 Dose: Not Given Documented By: CRISPIN Ondansetron HCl (Ondansetron 4 Mg Odt Prepack) 1 bottle MISC DIRECTED ONE Stop: 07/04/23 03:17 Last Admin: 07/04/23 03:25 Dose: 1 bottle Documented By: CRISPIN Vital Signs Vital signs: Vital Signs - 8 hr 07/04/23 02:17 Temperature 97.4 F L Pulse Rate 95 H Respiratory Rate 17 Blood Pressure 141/68 H Pulse Oximetry 99 Oxygen Delivery Method Room Air Medical Decision Making Lab Data 07/04/23 02:30 07/04/23 02:30 Labs: Lab Results 07/04/23 Range/Units 02:30 WBC 7.4 (4.5-11.0) X10^3/uL RBC 4.78 (4.0-5.2) X10^6/uL Hgb 13.6 (12.0-16.0) g/dL Hct 40.3 (36-46) % MCV 84.3 (80-100) fL MCH 28.4 (26-34) PG MCHC 33.7 (30-36) % RDW 16.3 H (11.6-14.8) % Plt Count 341 (150-400) X10^3/uL Neut % (Auto) 71.2 (50-75) % Lymph % (Auto) 17.6 L (25-40) % [place] % (Auto) 8.6 (3-14) % Eos % (Auto) 2.2 (2-4) % Baso % (Auto) 0.4 (0-2) % Neut # (Auto) 5300 (2537-1148) /uL Lymph # (Auto) 1300 (0825-3682) /uL [place] # (Auto) 600 (0-900) /uL Eos # (Auto) 200 (0-450) /uL Baso # (Auto) 0 (0-100) /uL Sodium 135 L (137-145) mmol/L Potassium 3.7 (3.4-5.1) mmol/L Chloride 103 (98-107) mmol/L Carbon Dioxide 21 L (22-32) mmol/L BUN 7 (7-17) mg/dL Creatinine 0.54 (0.52-1.04) mg/dL Estimated GFR > 60 (>60) mL/min BUN/Creatinine Ratio 13.0 (6-22) Glucose 94 (70-100) mg/dL Calcium 9.8 (8.4-10.2) mg/dL Magnesium 1.7 (1.6-2.3) mg/dL Total Bilirubin 0.5 (0.2-1.3) mg/dL AST 20 (14-36) IU/L ALT 12 (<35) IU/L Alkaline Phosphatase 52 (38-126) U/L Total Protein 8.3 H (6.3-8.2) g/dL Albumin 4.4 (3.5-5.0) g/dL Globulin 3.9 (1.7-4.1) g/dL Albumin/Globulin Ratio 1.1 (1.0-2.8) MDM Narrative Medical decision making narrative: CC: Nausea vomiting diarrhea 2 hours after eating pork chops with her spouse presenting with the same history Complicating co-morbidities: 10 weeks Data collected from: patient Differential considered: Food related nausea and vomiting, gastroenteritis, related nausea, bowel obstruction, colitis Exam documented above, pertinent findings include: Aside from the persistent nausea vomiting and diarrhea her exam is relatively benign. heart tones are appreciated at 160 with a single intrauterine fetus seen Lab Test results independently reviewed as above. Pertinent findings: CBC is unremarkable Chemistries are reassuring Magnesium is appropriate Treatments: IV Zofran, parenteral fluids, Re-evaluations: Patient is feeling much better and is up to trying some pricilla lisette Discussion: 22-year-old woman with acute onset nausea vomiting diarrhea 2 hours after eating pork chops. She is improving after Zofran and fluid resuscitation. No concerns with her . Lab work is reassuring. She will be discharged home with additional Zofran, discussed anticipated course of recovery with food related nausea vomiting and diarrhea episodes. Encouraged her to return if she has fevers, chills blood from either and or additional concerns beyond what we have discussed today. She is safe discharge Discharge Plan Departure Patient Disposition: Home Clinical Impression: Food poisoning, 10 weeks gestation of Instructions: DI for Food Poisoning Activity Restrictions/Additional Instructions: Thank you for coming in tonight I think you are correct, it was the park chops... Your lab work was reassuring, I have given you a L of fluid as well as intravenous nausea medication. Your able to tolerate some pricilla lisette at this time. I have given you a couple extra additional tablets of Zofran should you have persistent vomiting. Typically, food poisoning is essentially resolved once all the food is out of your system. Typically is around 24 hours leaving you still feeling tired and somewhat dehydrated. I believe the IV fluid that you are given in the emergency department will help with that. Hopefully you are able to get some sleep tonight. If you find that you are still vomiting or having diarrhea after 24 hours, develop a fever or new findings, this is not what I would expect. This would suggest that you need to be re-evaluated in the emergency department. We did do an ultrasound in the emergency department that shows a single beautiful baby growing appropriately with a heart rate at around 160. Prescriptions: No Action doxylamine succinate 25 mg tablet See Rx Instructions PO BID PRN (Reason: nausea and vomiting) 30 Days Qty: 30 2RF Rx Instructions: 1/2-1 tab orally twice a day PRN; pyridoxine (vitamin B6) [Vitamin B-6] 50 mg tablet 50 mg PO TID PRN (Reason: nausea and vomiting) Qty: 90 0RF ondansetron 8 mg tablet,disintegrating 8 mg PO Q8H PRN vit-ferrous sulfat-FA 27 mg iron- 0.8 mg tablet PO Referrals: ProviderEmanuel [Primary Care Provider] - Stand Alone Forms: Patient Portal/API, Work Release Note
[2023-07-04 02:17] VITALS: BP 141/68; PULSE 95; RESP 17; TEMP 36.3; O2SAT 99; BMI 27.1
[2023-07-04] MEDS: ONDANSETRON 4 MG ODT SL (02:20)
[2023-07-04] MEDS: SODIUM CHLORIDE 0.9% 1,000 ML 1000 ML IV (02:28)
[2023-07-04 02:42] LABS: Add Manual Diff / Slide Review NO; Basophils Absolute Auto 0 /uL (0-100); Basophils Percent Auto 0.4 % (0-2); Eosinophils Absolute Auto 200 /uL (0-450); Eosinophils Percent Auto 2.2 % (2-4); Hematocrit 40.3 % (36-46); Hemoglobin 13.6 g/dL (12.0-16.0); Lymphocytes Absolute Auto 1300 /uL (1100-4500); Lymphocytes Percent Auto 17.6 % (25-40); Mean Corpuscular HGB Conc 33.7 % (30-36); Mean Corpuscular Hemoglobin 28.4 PG (26-34); Mean Corpuscular Volume 84.3 fL (80-100); Monocytes Absolute Auto 600 /uL (0-900); Monocytes Percent Auto 8.6 % (3-14); Neutrophils Absolute Auto 5300 /uL (1500-7000); Neutrophils Percent Auto 71.2 % (50-75); Platelet Count 341 X10^3/uL (150-400); Red Blood Cell Count 4.78 X10^6/uL (4.0-5.2); Red Cell Distribution Width 16.3 % (11.6-14.8); White Blood Cell Count 7.4 X10^3/uL (4.5-11.0)
[2023-07-04 02:52] LABS: Alanine Aminotransferase 12 IU/L (<35); Albumin 4.4 g/dL (3.5-5.0); Albumin Globulin Ratio 1.1 (1.0-2.8); Alkaline Phosphatase 52 U/L (38-126); Aspartate Aminotransferase 20 IU/L (14-36); Bilirubin Total 0.5 mg/dL (0.2-1.3); Blood Urea Nitrogen 7 mg/dL (7-17); Calcium 9.8 mg/dL (8.4-10.2); Carbon Dioxide 21 mmol/L (22-32); Chloride 103 mmol/L (98-107); Estimated Glomerular Filt Rate > 60 mL/min (>60); Globulin 3.9 g/dL (1.7-4.1); Glucose 94 mg/dL (70-100); HEMOLYSIS < 15 (0-50); Magnesium 1.7 mg/dL (1.6-2.3); Potassium 3.7 mmol/L (3.4-5.1); Sodium 135 mmol/L (137-145); Total Protein 8.3 g/dL (6.3-8.2)
[2023-07-04 03:15] VITALS: BP 117/55; PULSE 69; RESP 20; TEMP 36.5; O2SAT 100
[2023-07-04] MEDS: ONDANSETRON 4 MG ODT PREPACK 1 BOTTLE MISC (03:25)
== END 2023-07-04 03:59 | disposition home or self-care (01) ==
PROVIDERS: Emergency Provider Emergency Medicine
DX: O26.891 Other specified pregnancy related conditions, first trimester (principal); A05.9 Bacterial foodborne intoxication, unspecified; Z3A.10 10 weeks gestation of pregnancy
CPT/HCPCS: 36415; 80053; 83735; 85025; 99284

== ENCOUNTER → 2023-07-08 16:51 | Outpatient (CLI) | payer OTHER, SELFPAY | PROVIDERS: Visit Provider Family Medicine | DX: N94.89 Other specified conditions associated with female genital organs and menstrual cycle (principal) | CPT/HCPCS: 87086 ==

== ENCOUNTER → 2023-07-21 17:17 | Outpatient (CLI) | payer OTHER, SELFPAY ==
[2023-07-21 17:41] LABS: Urine Volume 10mL (spun)
[2023-07-21 17:45] LABS: Add Manual Diff / Slide Review NO; Basophils Absolute Auto 100 /uL (0-100); Basophils Percent Auto 1.2 % (0-2); Eosinophils Absolute Auto 300 /uL (0-450); Hematocrit 37.8 % (36-46); Hemoglobin 12.6 g/dL (12.0-16.0); Lymphocytes Absolute Auto 2200 /uL (1100-4500); Lymphocytes Percent Auto 38.5 % (25-40); Mean Corpuscular HGB Conc 33.3 % (30-36); Mean Corpuscular Hemoglobin 28.1 PG (26-34); Mean Corpuscular Volume 84.3 fL (80-100); Monocytes Absolute Auto 500 /uL (0-900); Monocytes Percent Auto 9.6 % (3-14); Neutrophils Absolute Auto 2600 /uL (1500-7000); Neutrophils Percent Auto 45.7 % (50-75); Platelet Count 284 X10^3/uL (150-400); Red Blood Cell Count 4.49 X10^6/uL (4.0-5.2); Red Cell Distribution Width 16.5 % (11.6-14.8); White Blood Cell Count 5.7 X10^3/uL (4.5-11.0)
[2023-07-21 18:49] LABS: Hepatitis B Surface Antigen NEGATIVE s/c (NEGATIVE); Rubella Antibody IgG 5.1 IU/mL (>15)
[2023-07-21 19:09] LABS: HIV 1 & 2 Ab/Ag 4th Gen Combo NEGATIVE (NEGATIVE); Hep C Virus Ab w/Reflex Quant NEGATIVE s/c (NEGATIVE)
[2023-07-21 21:13] LABS: Appearance Urine UA CLEAR; Bilirubin Urine UA NEGATIVE (NEGATIVE); Color Urine UA YELLOW; Glucose Urine UA NEGATIVE (Negative); Ketones Urine UA 2+ (NEGATIVE); Leukocyte Esterase Urine UA NEGATIVE (NEGATIVE); Nitrite Urine UA NEGATIVE (Negative); Occult Blood Urine UA NEGATIVE (Negative); Protein Urine UA NEGATIVE (Negative); Specific Gravity Urine UA >=1.030 (1.000-1.035); Urobilinogen Urine UA 0.2 E.U./dL (0.2)
[2023-07-21 21:27] LABS: pH Urine UA 5.5 (4.5-8.0)
[2023-07-21 21:28] LABS: Bacteria Urine Few (2-10); RBC Urine None Seen (0-5/HPF); WBC Urine None Seen (0-5/HPF)
[2023-07-21 21:29] LABS: Culture Indicated Urine Cult Not Indicated; Squamous Epithelial Cell Urine None Seen (0-5/HPF)
[2023-07-23 06:41] LABS: RPR Screen Non Reactive (Non Reactive)
[2023-07-23 12:49] LABS: Varicella IgG Antibody 728 index (Immune >165)
== END ==
PROVIDERS: Referring Provider Family Medicine; Visit Provider Family Medicine
DX: O23.41 Unspecified infection of urinary tract in pregnancy, first trimester (principal)
CPT/HCPCS: 36415; 80055; 81001; 86787; 86803; 86850; 86900; 86901; 87086; 87389

== ENCOUNTER → 2023-08-23 14:10 | Outpatient (CLI) | payer OTHER, SELFPAY ==
[2023-08-23 14:35] LABS: Appearance Urine UA CLEAR; Bilirubin Urine UA 1+ (NEGATIVE); Color Urine UA YELLOW; Glucose Urine UA NEGATIVE (Negative); Ketones Urine UA 3+ (NEGATIVE); Leukocyte Esterase Urine UA NEGATIVE (NEGATIVE); Nitrite Urine UA NEGATIVE (Negative); Occult Blood Urine UA NEGATIVE (Negative); Protein Urine UA TRACE (Negative); Specific Gravity Urine UA >=1.030 (1.000-1.035); pH Urine UA 5.5 (4.5-8.0)
[2023-08-23 14:36] LABS: Urine Volume 10mL (spun)
[2023-08-23 14:40] LABS: Bacteria Urine None Seen; Culture Indicated Urine Cult Not Indicated; RBC Urine None Seen (0-5/HPF); Squamous Epithelial Cell Urine 1-5 /HPF (0-5/HPF); WBC Urine None Seen (0-5/HPF)
== END ==
PROVIDERS: PCP Family Medicine; Referring Provider Family Medicine; Visit Provider Family Medicine
DX: N39.0 Urinary tract infection, site not specified (principal)
CPT/HCPCS: 81001

== ENCOUNTER → 2023-09-12 10:34 | Outpatient (CLI) | payer OTHER, SELFPAY ==
--- NOTE | 2023-09-12 10:35 | DI.US.S_ITS ---
PROCEDURE: US OB >= 14 WEEKS FETUS INDICATIONS: ANATOMY OUTSIDE/PRIOR DATING DATA: Last menstrual period (LMP): 04/25/2023. LMP-based estimated date of delivery (RADHA): 01/30/2024. First dating scan (date and location): 06/28/2023; outside and not available. Estimated date of delivery (RADHA) from first dating scan: 01/30/2024. The calculations are made using the working RADHA of 01/30/24. TECHNIQUE: Real-time scanning was performed of the fetus, with image documentation and biometric measurements. Endovaginal scanning: Not performed COMPARISON: None. FINDINGS: General: A single living intrauterine gestation is present. Presentation: Breech. Placenta: Placental position is posterior , without previa. Amniotic fluid index: 21.5 cm, normal range is 5-24 cm. Single deepest vertical pocket is 6.7 cm. heart rate: 149 beats per minute. Maternal cervical canal: 3.4 cm long. Normal lower limit is 2.5 cm. biometrics: Biparietal diameter: 20 weeks 2 days Head circumference: 19 weeks 6 days Abdominal circumference: 20 weeks 1 day Femur length: 20 weeks 5 days The working estimated gestational age: 20 weeks 0 day Composite gestational age from present scan: 20 weeks 2 days Estimated weight and percentile: 348 g; 66% for gestational age. Anatomic survey: Neuro: Ventricles are non-dilated at less than 10 mm. Cisterna magna is normal at 3-11 mm. Cerebellum is normal in size and morphology. Nuchal skin fold: Normal at less than 6 mm between 14-21 weeks gestational age. Face: Nose and lips, facial profile are normal. Spine: No evidence for spina bifida. Heart: 4-chambered heart is present, with normal ventricular outflow tracts. Diaphragm: Diaphragm is intact. Stomach: Left-sided stomach is present. Kidneys: No hydronephrosis. Normal is less than 5 mm in 2nd trimester, less than 7 mm in 3rd trimester. Cord: 3-vessel cord has orthotopic insertion. Bladder: Normal in size. Extremities: All 4 extremities identified. IMPRESSION: 1. A single living intrauterine gestation with appropriate interval growth. 2. Normal anatomic survey. We strive to produce accurate, complete, and clear reports of imaging services. To assist us in improving patient care, this report was composed using standard report templates and voice recognition software. Therefore, it may contain abnormal punctuation, insertions and/or omissions. Occasional wrong-word or sound-alike substitutions may occur. Though we review the report and make efforts to correct it, we do recommend that the report be read carefully in proper context to recognize any text inaccuracies. Dictated by: Shelly Olmstead M.D. on 09/12/2023 at 15:53 Approved by: Shelly Olmstead M.D. on 09/13/2023 at 15:47
== END ==
LOC: US 10:35
PROVIDERS: PCP Family Medicine; Referring Provider Family Medicine; Visit Provider Family Medicine
DX: Z34.82 Encounter for supervision of other normal pregnancy, second trimester (principal); Z3A.20 20 weeks gestation of pregnancy
CPT/HCPCS: 76811

== ENCOUNTER → 2023-09-20 14:05 | Outpatient (CLI) | payer OTHER, SELFPAY ==
[2023-09-23 21:37] LABS: AFP, Serum 89.2 ng/mL (.); Estriol, Free 3.24 ng/mL (.); Inhibin A, Dimeric 172.38 pg/mL (.); Inhibin A, MoM 0.88 (.); Maternal Ethnicity Black (.); Maternal Weight 169 lbs (.); Number of Fetuses No (.); OSBR Risk 1 IN 9894 (.); Results Report (.); Test Results *Screen Negative* (.); hCG, MoM 0.95 (.); hCG, Serum 21479 mIU/mL (.)
== END ==
LOC: LAB 14:07
PROVIDERS: PCP Family Medicine; Referring Provider Family Medicine; Visit Provider Family Medicine
DX: Z34.80 Encounter for supervision of other normal pregnancy, unspecified trimester (principal)
CPT/HCPCS: 82105; 82677; 84702; 86336

== ENCOUNTER → 2023-10-18 14:20 | Outpatient (CLI) | payer OTHER, SELFPAY ==
[2023-10-18 17:30] LABS: GTT (PREG) 1 Hour PP 50gm Dose 94 mg/dL (76-139)
== END ==
PROVIDERS: PCP Family Medicine; Referring Provider Family Medicine; Visit Provider Family Medicine
DX: Z34.80 Encounter for supervision of other normal pregnancy, unspecified trimester (principal)
CPT/HCPCS: 36415; 82950

== ENCOUNTER → 2024-01-06 12:51 | Outpatient (CLI) | payer OTHER, SELFPAY ==
[2024-01-07 11:39] LABS: Strep Grp B PCR NEG for Grp B Strep
== END ==
PROVIDERS: PCP Family Medicine; Visit Provider Family Medicine
DX: Z34.83 Encounter for supervision of other normal pregnancy, third trimester (principal); Z3A.36 36 weeks gestation of pregnancy
CPT/HCPCS: 87653

== ENCOUNTER 2024-01-24 03:45 | Inpatient (IN) | payer OTHER, SELFPAY ==
[2024-01-24 05:05] LABS: Add Manual Diff / Slide Review NO; Basophils Absolute Auto 100 /uL (0-100); Basophils Percent Auto 1.2 % (0-2); Eosinophils Absolute Auto 400 /uL (0-450); Eosinophils Percent Auto 3.9 % (2-4); Hemoglobin 11.1 g/dL (12.0-16.0); Lymphocytes Absolute Auto 3400 /uL (1100-4500); Lymphocytes Percent Auto 37.1 % (25-40); Mean Corpuscular HGB Conc 33.6 % (30-36); Mean Corpuscular Hemoglobin 28.9 PG (26-34); Mean Corpuscular Volume 86.2 fL (80-100); Monocytes Absolute Auto 1200 /uL (0-900); Monocytes Percent Auto 13.3 % (3-14); Neutrophils Absolute Auto 4100 /uL (1500-7000); Neutrophils Percent Auto 44.5 % (50-75); Platelet Count 342 X10^3/uL (150-400); Red Blood Cell Count 3.83 X10^6/uL (4.0-5.2); Red Cell Distribution Width 16.2 % (11.6-14.8); White Blood Cell Count 9.2 X10^3/uL (4.5-11.0)
[2024-01-24 05:30] VITALS: BP 118/63
[2024-01-24] MEDS: fentaNYL 100 MCG/2 ML INJ 50 MCG IV (07:36)
[2024-01-24] MEDS: LACTATED RINGERS 1,000 ML 100 ML IV ×2 (07:40→17:08)
--- NOTE | 2024-01-24 08:29 | PM.HP.1 ---
History of Present Illness History of Present Illness Date Patient Seen: 01/24/24 Time Patient Seen: 07:50 Chief complaint: labor [facility] Medical History (Updated 12/16/23 @ 17:22 by Sherif James MD) COVID-19 Chlamydia (~2020) Healthy adult Surgical History No pertinent past surgical history Family History (Updated 06/23/23 @ 13:10 by Maggi Cast RN) Grandmother Multiple sclerosis Mother Heart attack Lung disease Hypertension Grandfather Heart disease Hypertension Kidney failure Diabetes mellitus Hyperlipidemia Father Healthy adult Grandmother Chronic bronchitis Grandmother Hyperlipidemia Hypertension Social History marital status: unmarried,living together number of children: 1 household members: significant other, children and none lives independently: Yes caregiver/support person: No housing: apartment pets and animals: No education level: high school occupational status: employed current occupational exposures/hazards: No (Hazmat duties have stopped since learning of ) special reji needs: No travel history: recent seatbelt use: always water heater temp set < 120 deg: Yes working smoke detector in home: Yes fire extinguisher in home: No (Encouraged to purchase one) carbon monox detector in home: Yes firearms in home: No do you feel safe at home: Yes Smoking Status: Never smoker second hand exposure: No alcohol intake: former substance use type: does not use during the past year weight has: other well-balanced diet: rarely or never daily servings fruits/ve-1 caffeine: Yes (rarely) Type(s) of exercise: none frequency: 3-4 times per week Meds Home Medications and Allergies Home Medications Medication Instructions Recorded Confirmed Type vitamin-ferrous sulfate 1 tab PO DAILY 06/23/23 01/24/24 History 27 mg iron-folic acid 0.8 mg tablet Allergies Allergy/AdvReac Type Severity Reaction Status Date / Time Sulfa (Sulfonamide Allergy Intermediate Hives Verified 01/20/24 15:34 Antibiotics) Objective Labs 01/24/24 04:52 Labs: Laboratory Results - last 24 hr 01/24/24 04:52 WBC 9.2 RBC 3.83 L Hgb 11.1 L Hct 33.0 L MCV 86.2 MCH 28.9 MCHC 33.6 RDW 16.2 H Plt Count 342 Neut % (Auto) 44.5 L Lymph % (Auto) 37.1 [place] % (Auto) 13.3 Eos % (Auto) 3.9 Baso % (Auto) 1.2 Neut # (Auto) 4100 Lymph # (Auto) 3400 [place] # (Auto) 1200 H Eos # (Auto) 400 Baso # (Auto) 100 Blood Type O Positive Antibody Screen Negative Assessment & Plan Time-Based Coding :: [TOTAL MINUTES] spent with patient and on the chart (including review of chart, obtaining history, exam, reviewing outside data, placing orders, documenting exam and treatment plan, and counseling patient) on [DATE].
--- NOTE | 2024-01-24 08:56 | PM.AN.REGBLK ---
Regional Block Pre-procedure Procedure: Continuous Lumbar Epidural for L&D (with dural puncture) Attending OB provider: Sherif James PMH/ROS narrative: 23yo female in labor requesting epidural. See pre-anesthesia evaluation for further details. ASA Class: II Labs: Hct 33.0 % (36-46) L 01/24/24 04:52 Plt Count 342 X10^3/uL (150-400) 01/24/24 04:52 Medications: Current Medications Generic Name Dose Route Start Last Admin Trade Name Freq PRN Reason Stop Dose Admin Butorphanol Tartrate 0.5 mg 01/24/24 08:54 Butorphanol 1 Mg/Ml Vial IV 01/25/24 08:55 Q3HR PRN PRURITUS Carboprost Tromethamine 250 mcg 01/24/24 04:27 Carboprost 250 Mcg/Ml Ampul IM Q90M PRN Bleeding Diphenhydramine HCl 25 mg 01/24/24 08:53 Diphenhydramine 50 Mg/Ml Vial IV Q10M PRN Pruritis Diphenhydramine HCl 25 mg 01/24/24 08:54 Diphenhydramine 50 Mg/Ml Vial IV 01/25/24 08:55 Q3HR PRN PRURITUS Ephedrine Sulfate 10 mg 01/24/24 08:53 Ephedrine 50 Mg/Ml Vial IV Q5M PRN Blood pressure decrease more than 20% of baseline. Fentanyl 50 mcg 01/24/24 07:21 01/24/24 07:36 Fentanyl 100 Mcg/2 Ml Inj IV 50 mcg Q1H PRN Administration Pain, Severe (7-10) Lactated Ringer's 1,000 mls @ 100 mls/hr 01/24/24 04:30 01/24/24 07:40 Lactated Ringers IV 100 mls/hr CONT ALVARO Administration Oxytocin/Lactated Ringer's 30 unit in 500 mls @ 200 mls/hr 01/24/24 04:27 Oxytocin Premix IV CONT PRN Bleeding Protocol Tranexamic Acid 1,000 mg/ 100 mls @ 600 mls/hr 01/24/24 04:27 Sodium Chloride IV NOW PRN Bleeding FENT 2MCG/ML BUPIV 0.125% EPI 200 mcg in 100 mls @ 6 mls/hr 01/24/24 09:00 Fentanyl/Bupiv/Ns 2mcg/Ml - 0.125% EPIDURAL CONT ALVARO Lidocaine HCl 20 ml 01/24/24 04:27 Lidocaine 1% 20 Ml INJ INTRA-OP PRN Post Delivery Methylergonovine Maleate 0.2 mg 01/24/24 04:27 Methylergonovine 0.2 Mg Tablet PO Q6HR PRN Heavy Bleeding Methylergonovine Maleate 0.2 mg 01/24/24 04:27 Methylergonovine 0.2 Mg/Ml Vial IM NOW PRN Bleeding Metoclopramide HCl 10 mg 01/24/24 08:54 Metoclopramide 10 Mg/2 Ml Inj IV 01/25/24 08:55 Q4H PRN Nausea Misoprostol 800 mcg 01/24/24 04:27 Misoprostol 200 Mcg Tablet ND NOW PRN Bleeding Misoprostol 400 mcg 01/24/24 04:27 Misoprostol 200 Mcg Tablet SL NOW PRN Bleeding Nalbuphine HCl 2.5 mg 01/24/24 08:53 Nalbuphine 20 Mg/Ml Ampul IV Q10M PRN Pruritis Nalbuphine HCl 5 mg 01/24/24 08:54 Nalbuphine 20 Mg/Ml Ampul IV Q6H PRN PRURITIS Naloxone HCl 0.2 mg 01/24/24 04:27 Naloxone 0.4 Mg/Ml Vial IV Q2MIN PRN Opiate Reversal Ondansetron HCl 4 mg 01/24/24 08:54 Ondansetron 4 Mg/2 Ml Inj IV 01/25/24 08:55 Q6HR PRN Nausea Oxytocin 10 unit 01/24/24 04:27 Oxytocin 10 Unit/Ml Vial IM NOW PRN Bleeding Allergies: Allergies Allergy/AdvReac Type Severity Reaction Status Date / Time Sulfa (Sulfonamide Allergy Intermediate Hives Verified 01/20/24 15:34 Antibiotics) Procedure Insertion date: 01/24/24 Insertion time: 08:34 Prep/Local: 1% lidocaine (Chloraprep) Interspace: L3-4 Patient position: sitting Needle: 18 gauge Primitivotead (22g 5 Pencan for dural puncture) Loss of resistance with: saline VU at (cm): 6 Catheter placed at SKIN (cm): 12 Catheter in SPACE (cm): 6 Insertion: No CSF, No Blood, Yes Paresthesia with insertion, No Paresthesia with injection and No Test dose reaction Initial Medications TEST DOSE time: 08:35 TEST DOSE: 1.5% lidocaine with epinephrine 1:200k (mL): 3 BOLUS DOSE time: 08:36 BOLUS DOSE (mL): 7 BOLUS DOSE med: other (2 ml same as test, plus 5 ml via epidural infusion) Infusion INFUSION: 0.125% bupivacaine and with fentanyl 2 mcg/mL Initial rate (mL/hr): 10 Subsequent interventions: Time out 08:24. Pump started 08:46 after 5-ml bolus of epidural infusion. Post-procedure Anesthesia date START: 01/24/24 Anesthesia time START: 08:24 Anesthesia date END: 01/24/24 Anesthesia time END: 18:43 Post-procedure Anesthesia Assessment: Yes CV function: HR/BP stable, Yes Resp function: RR/sat/airway adequate, Yes Post-op hydration adequate, Yes Pain control adequate, Yes Nausea & vomiting absent, Yes Temperature > 36 C, Yes Mental status appropriate and No Anesthesia complications
[2024-01-24] MEDS: OXYTOCIN PREMIX 30 UNIT/500 ML PLAST..BAG IV (10:11)
[2024-01-24] MEDS: ONDANSETRON 4 MG/2 ML INJ IV ×2 (15:02→19:38)
[2024-01-24] MEDS: FENT 2MCG/ML BUPIV 0.125% EPI 200 MCG/100 ML PLAST..BAG 6 MCG EPIDURAL (15:03)
--- NOTE | 2024-01-24 15:34 | PM.OBHP.IH.1 ---
OB HPI Date/Time Date of admission: 01/24/24 Date Patient Seen: 01/24/24 Time Patient Seen: 07:50 History of Present Condition Chief complaint: labor RADHA Calculator Estimated Delivery Date Method Current WG Current Estimate 01/30/24 LMP (Certain) 39w 1d Other Estimates 01/30/24 Ultrasound #1 39w 1d Estimated Gestational Age (weeks): 39+1 : 2 Para: 1 Narrative: Yumiko is a 23-year-old at GA 39+1 weeks presenting for labor. Prodromal labor starting Tuesday afternoon throughout the day yesterday, regular contractions starting around 11:30 p.m. last night. Endorses normal movement. Denies vaginal bleeding or denies leakage of fluid. notable for rubella nonimmune status. care: good care Dating criteria OB: LMP confirmed by 1st trimester US Ultrasounds: normal 1st trimester US and normal mid trimester US Obstetrical complications: none Medical complications OB: none Preadmission Labs Last OB Lab Results: Blood Type O Positive 01/24/24 04:52 Antibody Screen Negative 01/24/24 04:52 Hct 33.0 % (36-46) L 01/24/24 04:52 Hgb 11.1 g/dL (12.0-16.0) L 01/24/24 04:52 Hep Bs Antigen Negative s/c (NEGATIVE) 07/21/23 17:30 Hepatitis C Antibody Negative s/c (NEGATIVE) 07/21/23 17:30 Rubella Antibody 5.1 IU/mL (>15) L 07/21/23 17:30 VZV IgG Antibody 728 index (Immune >165) 07/21/23 17:30 Glucose 1 Hr 50 gm 94 mg/dL (76-139) 10/18/23 15:24 Group B Strep (PCR) Neg for grp b strep 01/06/24 12:51 Genetic Screens: Quad screen: Normal Prior (ies) Past Pregnancies Del. Date GA/Weeks Labor Lgth Wt Sex Route Outcome Anesthesia Place Delv Breastfeed Preg Comp Name 11/22/22 40.2 32 7 lb 12 oz Female vaginal live - full term epidural IH N/A other [place] Delivery Date: 11/22/22 Last Updated by: Maggi Cast RN hyperemesis Evaluation Evaluation Baseline heart rate: 120 Variability: Moderate (11-25) monitor accelerations: Present Monitor Decelerations: Absent Contraction Frequency (minutes): 4 Uterine Contraction Intensity: Moderate Category of Tracing: Reactive Status: Category l Dilation (cm): 7 Effacement (%): 50 station: -2 Position of cervix: mid Consistency: medium Comments: Bulging bag [facility] Medical History (Updated 12/16/23 @ 17:22 by Sherif James MD) COVID-19 Chlamydia (~2020) Healthy adult Surgical History No pertinent past surgical history Family History (Updated 06/23/23 @ 13:10 by Maggi Cast RN) Grandmother Multiple sclerosis Mother Heart attack Lung disease Hypertension Grandfather Heart disease Hypertension Kidney failure Diabetes mellitus Hyperlipidemia Father Healthy adult Grandmother Chronic bronchitis Grandmother Hyperlipidemia Hypertension Social History marital status: unmarried,living together number of children: 1 household members: significant other, children and none lives independently: Yes caregiver/support person: No housing: apartment pets and animals: No education level: high school occupational status: employed current occupational exposures/hazards: No (Hazmat duties have stopped since learning of ) special reji needs: No travel history: recent seatbelt use: always water heater temp set < 120 deg: Yes working smoke detector in home: Yes fire extinguisher in home: No (Encouraged to purchase one) carbon monox detector in home: Yes firearms in home: No do you feel safe at home: Yes Smoking Status: Never smoker second hand exposure: No alcohol intake: former substance use type: does not use during the past year weight has: other well-balanced diet: rarely or never daily servings fruits/ve-1 caffeine: Yes (rarely) Type(s) of exercise: none frequency: 3-4 times per week Meds Home Medications and Allergies Home Medications Medication Instructions Recorded Confirmed Type vitamin-ferrous sulfate 1 tab PO DAILY 06/23/23 01/24/24 History 27 mg iron-folic acid 0.8 mg tablet Allergies Allergy/AdvReac Type Severity Reaction Status Date / Time Sulfa (Sulfonamide Allergy Intermediate Hives Verified 01/20/24 15:34 Antibiotics) OB Exam Narrative Exam Narrative: HEENT: NC/AT, EOMI, moist mucous membranes CV: RRR, normal S1 S2, no m/g/r Resp: CTAB Abd: Gravid, soft, NTND, +BS Ext: Full ROM, no edema Skin: No rash or lesions Neuro: A&O x3, normal tone, no focal deficits Objective Labs 01/24/24 04:52 Labs: Laboratory Results - last 24 hr 01/24/24 04:52 WBC 9.2 RBC 3.83 L Hgb 11.1 L Hct 33.0 L MCV 86.2 MCH 28.9 MCHC 33.6 RDW 16.2 H Plt Count 342 Neut % (Auto) 44.5 L Lymph % (Auto) 37.1 [place] % (Auto) 13.3 Eos % (Auto) 3.9 Baso % (Auto) 1.2 Neut # (Auto) 4100 Lymph # (Auto) 3400 [place] # (Auto) 1200 H Eos # (Auto) 400 Baso # (Auto) 100 Blood Type O Positive Antibody Screen Negative Assessment and Plan Assessment and Plan Assessment and Plan narrative: 23-year-old at [place] 39+1 weeks presenting for labor. -admit to L&D -AROM w/clear fluid -GBS negative, ppx not indicated -pain control prn if desired by patient -PPH risk low -VTE risk low, SCDs with epidural -anticipate vaginal delivery Time-Based Coding :: 25 minutes spent with patient and on the chart (including review of chart, obtaining history, exam, reviewing outside data, placing orders, documenting exam and treatment plan, and counseling patient) on 01/24/2024.
[2024-01-24] MEDS: CALCIUM CARBONATE 500 MG TAB 1000 MG PO (17:12)
--- NOTE | 2024-01-24 18:58 | PM.OBPRVD ---
Labor & Delivery Delivery date: 01/24/24 Intrapartal Events: Prolonged Active Phase Cervical ripening method: none Delivery augmentation: rupture of membranes and pitocin Delivery monitor: external FHT and external uterine L&D Laceration Description: None Estimated blood loss (mL): 75 Anesthesia Type: Epidural Narrative: Admitted on 01/24/2024 at 0400 with regular uterine contractions and 4 cm dilation. She progressed to 7 cm and AROM was performed with clear fluid at 0804. She continued to progress slowly and was started on Pitocin for labor augmentation at 1200. Patient noted to be fully dilated at 1821 and began pushing at 1826. Spontaneous vaginal delivery of a viable male infant in the OA position occurred at 184. Delivery was complicated by a 2 minute shoulder dystocia, which resolved with Barney Weinstein and delivery of the posterior shoulder, and the body fully delivered at 184. The was suctioned and stimulated at the perineum, and gave appropriate cry with movement of all extremities. Delayed cord clamping was observed for 60 seconds. The cord was clamped and cut, and the handed to mother for skin to skin. Cord blood and segment were obtained. The placenta was delivered without difficulty using gentle cord traction and found to be intact with a 3-vessel cord. After fundal massage the uterus was firm and bleeding stopped. The vagina and cervix were examined for lacerations, with none noted. Patient stable with rooming in, bonding skin to skin and attempting to breast feed. Baby 1: gender: Male Presentation: vertex Placenta delivery description: Spontaneous Cord Vessel Description: 3 Vessels score (1 min): 7 score (5 min): 9 weight: 7 lb 12.517 oz Plan for aftercare: Routine care
[2024-01-24] MEDS: ACETAMINOPHEN 325 MG TABLET 650 MG PO (21:36)
[2024-01-24] MEDS: IBUPROFEN 600 MG TABLET PO (21:38)
[2024-01-25] MEDS: ACETAMINOPHEN 325 MG TABLET 650 MG PO ×3 (04:03→16:24)
[2024-01-25] MEDS: IBUPROFEN 600 MG TABLET PO ×3 (04:03→16:24)
[2024-01-25] MEDS: DERMOPLAST SPRAY 20% 60 ML 1 SPRAY TOP (04:04)
[2024-01-25] MEDS: OXYCODONE IR 5 MG TABLET PO ×2 (08:21→15:06)
[2024-01-25] MEDS: DOCUSATE 100 MG CAPSULE PO (10:16)
--- NOTE | 2024-01-25 16:15 | PM.OBDS.1 ---
Discharge Providers Provider Date of admission: 01/24/24 03:45 Discharge Date: 01/25/24 Primary care physician: Sherif James MD Consults: 01/24/24 04:27 Consult to Anesthesiology Urgent Comment: Consulting Provider: Anesthesiologist Reason for consultation: Epidural 01/25/24 19:40 Consult to Residential Life Director Routine Comment: Discharge provider: Sherif James MD Summary Hospital Course Date Patient Seen: 01/25/24 Time Patient Seen: 16:15 Diagnoses: # #Shoulder dystocia during labor and delivery Hospital Course: Admitted for normal labor on 01/24/2024. Progressed adequately with AROM in Pitocin augmentation to complete dilation over the course of 14 hours. She had an of a live male complicated by 2 minute shoulder dystocia with no lacerations. Her course was uncomplicated. At discharge patient is ambulating well, tolerating normal diet, breast-feeding without difficulty, and pain is adequately controlled OTC analgesia. She reports bleeding is similar to normal menses. Peripartum Data Delivery Method: Natural Vaginal Laceration Description: None complications: none 1: Gender: Male Disposition of : home Discharge Diagnosis (1) (spontaneous vaginal delivery): Status: Acute (2) Shoulder dystocia, delivered: Status: Acute Status at Discharge Cognitive/behavioral status at discharge: at baseline, oriented Functional status at discharge: independent ambulation Overall status at discharge: patient is back to baseline Time Spent with Patient Time attestation: Total time spent providing and/or coordinating discharge services: 30 minutes Objective Labs 01/24/24 04:52 Exam Narrative Exam Narrative: General: Well-appearing, well-nourished, no distress HEENT: Moist mucous membranes, no pallor CV: Regular rate and rhythm, no murmur auscultated Resp: CTAB, comfortable work of breathing Abdomen: Soft, bowel sounds present, fundus firm below umbilicus with appropriate tenderness Extremities: No edema, no calf tenderness or evidence of DVT Discharge Plan Discharge Plan Patient Disposition: Home Discharge orders & Medications Prescriptions: New acetaminophen 325 mg Tablet 650 mg PO Q6HR PRN (Reason: Pain, Mild (1-3)) Qty: 90 1RF ibuprofen 600 mg Tablet 600 mg PO Q6HR PRN (Reason: Pain, Mild (1-3)) Qty: 90 1RF A.E.RMonica Nam Sheryl 12.5-50 % Pads, Medicated 1 pad topical Q30M PRN (Reason: Itching) Qty: 40 0RF Continued vit-ferrous sulfat-FA 27 mg iron- 0.8 mg tablet 1 tab PO DAILY Follow up/Referrals: Sherif James MD [Primary Care Provider] - 03/06/24 10:30 am (Follow up with Dr. James March 06, 2024 at 10:30AM.) Visit Report/Discharge Packet Instructions: DI for Hemorrhage, Women's Health Study Report: Depression, Depression Stand Alone Forms: Discharge: Care, Patient Portal/API, Stroke Signs & Symptoms Discharge Data Primary Care Provider: Sherif James Discharges patient from system. Discharge Date/Time: 01/25/24 17:45
[2024-01-25] MEDS: MEASLES,MUMPS,RUBELLA VACC/PF 0.5 ML VIAL SUBCUT (17:39)
== END 2024-01-25 17:45 | disposition home or self-care (01) | DRG 807 ==
PROVIDERS: Admitting Provider Family Medicine; PCP Family Medicine; Referring Provider Family Medicine; Visit Provider Family Medicine
DX: O63.1 Prolonged second stage (of labor) (principal); Z37.0 Single live birth; Z3A.39 39 weeks gestation of pregnancy
CPT/HCPCS: 36415; 59050; 59400; 85025; 86850; 86900; 86901; G0379; J2405; J2590; J3010

== ENCOUNTER 2024-08-15 12:00 | Emergency (ER) | payer OTHER, SELFPAY ==
[2024-08-15 12:05] VITALS: BP 131/78; PULSE 84; RESP 18; TEMP 36.9; O2SAT 99; BMI 28.0
[2024-08-15 12:51] LABS: Strep Grp A by PCR Rapid Negative (Negative)
--- NOTE | 2024-08-15 13:12 | ED_ITS ---
HPI - URI/Sore Throat <Amy Mccollum PA-C - Last Filed: 08/15/24 20:03> General Chief Complaint: Upper Respiratory Symptoms Stated Complaint: upper resp symptoms Time Seen by Provider: 08/15/24 12:53 Source: patient Mode of arrival: Ambulatory History of Present Illness HPI Narrative: Ms. Ward is a pleasant 23-year-old female with no reported past medical history who presents to the emergency department for sore throat x3 days. Patient states sore throat originally started on the right side radiating to the right ear then moved to the left side radiating to the left ear and now she is pain on both sides of her throat with swallowing. Yesterday she went to a walk- in clinic and had a negative rapid strep throat swab and a negative COVID/flu/RSV swab however reports that today her sore throat is worse and she noticed some white spots in the back of her throat so she would like repeat strep test. She currently has a 6-month-old baby. She denies fevers but reports she might have been having some chills. Denies cough, vomiting, diarrhea. States that she has been having some nighttime nausea, would like test. No medications prior to arrival. Related Data Home Medications Medication Instructions Recorded Confirmed vitamin-ferrous sulfate 1 tab PO DAILY 06/23/23 01/24/24 27 mg iron-folic acid 0.8 mg tablet Allergies Allergy/AdvReac Type Severity Reaction Status Date / Time Sulfa (Sulfonamide Allergy Intermediate Hives Verified 03/06/24 10:47 Antibiotics) Review of Systems <Amy Mccollum PA-C - Last Filed: 08/15/24 20:03> Review of Systems ROS Unobtainable: All systems reviewed & are unremarkable except as noted in HPI and below Patient History <Amy Mccollum PA-C - Last Filed: 08/15/24 20:03> Medical History COVID-19 Chlamydia (~2020) Healthy adult Surgical History No pertinent past surgical history Family History Grandmother Multiple sclerosis Mother Heart attack Lung disease Hypertension Grandfather Heart disease Hypertension Kidney failure Diabetes mellitus Hyperlipidemia Father Healthy adult Grandmother Chronic bronchitis Grandmother Hyperlipidemia Hypertension Social History marital status: unmarried,living together number of children: 1 household members: significant other, children and none lives independently: Yes caregiver/support person: No housing: apartment pets and animals: No education level: high school occupational status: employed current occupational exposures/hazards: No (Hazmat duties have stopped since learning of ) special reji needs: No travel history: recent seatbelt use: always water heater temp set < 120 deg: Yes working smoke detector in home: Yes fire extinguisher in home: No (Encouraged to purchase one) carbon monox detector in home: Yes firearms in home: No do you feel safe at home: Yes Smoking Status: Never smoker second hand exposure: No alcohol intake: former substance use type: does not use during the past year weight has: other well-balanced diet: rarely or never daily servings fruits/ve-1 caffeine: Yes (rarely) Type(s) of exercise: none frequency: 3-4 times per week Smoking Status: Never smoker alcohol intake frequency: holidays/special occasions only Exam <Amy Mccollum PA-C - Last Filed: 08/15/24 20:03> Narrative Exam Narrative: GENERAL: 23 year old patient appears stated age. Well-developed patient, in no acute distress. HEAD: Atraumatic. Normocephalic. EYES:No scleral icterus. No injection or drainage. ENT: Posterior oropharyngeal erythema present. Uvula is midline. No tonsillar hypertrophy or exudates. Floor of the mouth soft. NECK: Trachea midline. Cervical ROM intact. CARDIOVASCULAR: Regular rate and rhythm. RESPIRATORY: ?Nonlabored respirations. ?Speaking in clear, full sentences. ?Clear to auscultation. NEURO: AOx3. ?Clear speech. ?Moves all 4 extremities appropriately. SKIN: No rash or erythema of visible areas Initial Vital Signs Initial Vital Signs: Vital Signs Temperature 98.4 F 08/15/24 12:05 Pulse Rate 84 08/15/24 12:05 Respiratory Rate 18 08/15/24 12:05 Blood Pressure 131/78 08/15/24 12:05 Pulse Oximetry 99 08/15/24 12:05 Oxygen Delivery Method Room Air 08/15/24 12:05 <Kevyn Justin MD - Last Filed: 08/17/24 12:44> Initial Vital Signs Initial Vital Signs: Vital Signs Temperature 98.4 F 08/15/24 12:05 Pulse Rate 84 08/15/24 12:05 Respiratory Rate 18 08/15/24 12:05 Blood Pressure 131/78 08/15/24 12:05 Pulse Oximetry 99 08/15/24 12:05 Oxygen Delivery Method Room Air 08/15/24 12:05 Course <Amy Mccollum PA-C - Last Filed: 08/15/24 20:03> Orders Ordered: Discontinued Medications Acetaminophen (Acetaminophen 325 Mg Tablet) 975 mg PO NOW ONE Stop: 08/15/24 15:04 Last Admin: 08/15/24 15:11 Dose: 975 mg Documented By: RB Dexamethasone (Dexamethasone 4 Mg/Ml Vial) 10 mg IM NOW ONE Stop: 08/15/24 15:04 Last Admin: 08/15/24 15:11 Dose: 10 mg Documented By: RB Vital Signs Vital signs: Vital Signs - 8 hr 08/15/24 12:05 08/15/24 15:19 08/15/24 15:58 Temperature 98.4 F 98.0 F Pulse Rate 84 78 Respiratory Rate 18 20 Blood Pressure 131/78 129/74 Pulse Oximetry 99 100 Oxygen Delivery Method Room Air Room Air <Kevyn Justin MD - Last Filed: 08/17/24 12:44> Orders Ordered: Discontinued Medications Acetaminophen (Acetaminophen 325 Mg Tablet) 975 mg PO NOW ONE Stop: 08/15/24 15:04 Last Admin: 08/15/24 15:11 Dose: 975 mg Documented By: RB Dexamethasone (Dexamethasone 4 Mg/Ml Vial) 10 mg IM NOW ONE Stop: 08/15/24 15:04 Last Admin: 08/15/24 15:11 Dose: 10 mg Documented By: RB Vital Signs Vital signs: Vital Signs - 8 hr 08/15/24 12:05 08/15/24 15:19 08/15/24 15:58 Temperature 98.4 F 98.0 F Pulse Rate 84 78 Respiratory Rate 18 20 Blood Pressure 131/78 129/74 Pulse Oximetry 99 100 Oxygen Delivery Method Room Air Room Air MDM - URI/Sore Throat <Amy Mccollum PA-C - Last Filed: 08/15/24 20:03> Medical Records Attestation: I reviewed the patient's medical records. Lab Data Labs: Lab Results 08/15/24 08/15/24 08/15/24 Range/Units 12:10 13:35 13:36 Urine Test Negative (Negative) Monoscreen Negative (Negative) Group A Strep (PCR) Negative (Negative) MDM Narrative Medical decision making narrative: 23-year-old female with no reported past medical history who presents to the emergency department for sore throat x3 days. Differential diagnosis includes but is not limited to viral pharyngitis, strep pharyngitis, viral syndrome, mononucleosis, tonsillitis, etc. On exam the patient is in no acute distress, nontoxic-appearing, all vital signs within normal limits. She is posterior oropharyngeal erythema but oropharynx is widely patent, uvula midline, no exudates or tonsillar swelling.Rapid strep test was negative in triage. She declines additional viral swabbing at this time. However we will proceed with mono spot test. We will check test prior to medication administration. Rapid strep, Monospot, all negative. Symptoms consistent with viral pharyngitis at this time however throat culture was sent and is pending. Patient was treated with IM Decadron and oral acetaminophen to help with symptoms. Recommended rest, hydration, ibuprofen/Tylenol for pain, warm tea with honey, follow up with PCP. ED return precautions discussed. Patient verbalized understanding of all information agreeable with the plan. She is stable for discharge home. <Kevyn Justin MD - Last Filed: 08/17/24 12:44> Lab Data Labs: Lab Results 08/15/24 08/15/24 08/15/24 Range/Units 12:10 13:35 13:36 Urine Test Negative (Negative) Monoscreen Negative (Negative) Group A Strep (PCR) Negative (Negative) Discharge Plan Departure Patient Disposition: Home Clinical Impression: Acute viral pharyngitis Instructions: DI for Viral Pharyngitis Activity Restrictions/Additional Instructions: Thank you for coming to the emergency department. Today you were evaluated for sore throat. Your strep throat and mono test were both negative. You were treated with steroids to help with swelling and inflammation and Tylenol. Please rest, hydrate, use ibuprofen and Tylenol for pain and drink warm tea with honey. Please take Ibuprofen (Motrin/Advil) or Acetaminophen (Tylenol) for pain. These are available over the counter. You may take Ibuprofen 600 mg every 8 hours with food for pain. You may also take Acetaminophen 650 mg every 4-6 hours for pain. Do not exceed 3000 mg of Tylenol a day as this can cause liver damage. Do not drink alcohol with either of these medications. Please change your toothbrush once your symptoms are improving. You may return to work when your symptoms are improving and you have been without a fever for 24 hours. Please follow up with your primary care doctor within the next 2-3 days for ER follow-up. (If you do not have a PCP you can call [phone]. ?to schedule an appointment with an [facility] Primary Care Provider) IF YOU DEVELOP ANY NEW OR WORSENING SYMPTOMS, RETURN TO THE ER! Please read the attached instructions, they highlight more specific treatments and interventions for you at home. Thank you for letting me participate in your care, Amy Mccollum PA-C Prescriptions: No Action vit-ferrous sulfat-FA 27 mg iron- 0.8 mg tablet 1 tab PO DAILY Referrals: Sherif James MD [Primary Care Provider] - Stand Alone Forms: Patient Portal/API/Survey, Work Release Note ED Sign-out <Kevyn Justin MD - Last Filed: 08/17/24 12:44> Cosign ED Attending Jose Alfredoature Attestation: I was immediately available in the department for consultation. ?This documentation has been reviewed and I agree with assessment and plan. Supervised by Kevyn Justin MD
[2024-08-15 14:12] LABS: Monotest Negative (Negative)
[2024-08-15 14:39] LABS: Pregnancy Test Urine Negative (Negative)
[2024-08-15] MEDS: DEXAMETHASONE 4 MG/ML VIAL 10 MG IM (15:11)
[2024-08-15] MEDS: ACETAMINOPHEN 325 MG TABLET 975 MG PO (15:11)
[2024-08-15 15:19] VITALS: BP 129/74; PULSE 78; RESP 20; O2SAT 100
[2024-08-15 15:58] VITALS: TEMP 36.7
== END 2024-08-15 15:59 | disposition home or self-care (01) ==
PROVIDERS: Emergency Medicine; Emergency Provider Physician Assistant; PCP Family Medicine
DX: J02.8 Acute pharyngitis due to other specified organisms (principal)
CPT/HCPCS: 36415; 81025; 86318; 87070; 87651; 96372; 99283; 99284; J1100

== ENCOUNTER 2024-10-06 10:27 | Emergency (ER) | payer OTHER, SELFPAY ==
[2024-10-06 10:36] VITALS: BP 128/60; PULSE 84; RESP 18; TEMP 36.1; O2SAT 99; BMI 27.9
--- NOTE | 2024-10-06 11:02 | DI.US.S_ITS ---
PROCEDURE: US OB <= 14 WEEKS FETUS INDICATIONS: 6 weeks , vaginal bleeding OUTSIDE/PRIOR DATING DATA: Last menstrual period (LMP): 08/26/2024 LMP-based estimated date of delivery (RADHA): 06/02/2025 TECHNIQUE: Real-time scanning was performed of the fetus, with image documentation and biometric measurements. Endovaginal scanning: Not performed COMPARISON: [facility], , OB <= 14 WEEKS FETUS, 04/12/2022, 9:23. FINDINGS: There is intrauterine gestational sac seen. No pole or cardiac activity is detected. Estimated gestational age based on mean gestational sac diameter is 5 weeks, 0 day. Estimated gestational age based on last menstrual period is 5 weeks, 6 days. Bilateral ovaries are visualized and are within normal limits. Blood is noted on the transvaginal probe during the exam. IMPRESSION: 1. Finding is concerning for spontaneous in progress, follow-up with serial beta hCG and follow-up ultrasound is recommended for evaluation of viability. We strive to produce accurate, complete, and clear reports of imaging services. To assist us in improving patient care, this report was composed using standard report templates and voice recognition software. Therefore, it may contain abnormal punctuation, insertions and/or omissions. Occasional wrong-word or sound-alike substitutions may occur. Though we review the report and make efforts to correct it, we do recommend that the report be read carefully in proper context to recognize any text inaccuracies. Dictated by: Raheel Palacio M.D. on 10/06/2024 at 12:41 Approved by: Raheel Palacio M.D. on 10/06/2024 at 12:43
[2024-10-06 11:22] LABS: Bacteria Urine Occasional (0-1); Culture Indicated Urine Cult Not Indicated; RBC Urine 5-10/HPF (0-5/HPF); Squamous Epithelial Cell Urine 1-5 /HPF (0-5/HPF); Urine Volume 10mL (spun); WBC Urine 1-5/HPF (0-5/HPF)
[2024-10-06 11:26] LABS: Add Manual Diff / Slide Review NO; Basophils Absolute Auto 100 /uL (0-100); Basophils Percent Auto 1.4 % (0-2); Eosinophils Absolute Auto 200 /uL (0-450); Eosinophils Percent Auto 3.5 % (2-4); Hemoglobin 12.3 g/dL (12.0-16.0); Lymphocytes Absolute Auto 1700 /uL (1100-4500); Lymphocytes Percent Auto 37.6 % (25-40); Mean Corpuscular HGB Conc 32.4 % (30-36); Mean Corpuscular Volume 86.4 fL (80-100); Monocytes Absolute Auto 500 /uL (0-900); Monocytes Percent Auto 10.8 % (3-14); Neutrophils Absolute Auto 2100 /uL (1500-7000); Neutrophils Percent Auto 46.7 % (50-75); Platelet Count 389 X10^3/uL (150-400); Red Cell Distribution Width 15.3 % (11.6-14.8); White Blood Cell Count 4.6 X10^3/uL (4.5-11.0)
--- NOTE | 2024-10-06 11:51 | ED.PREGNANCY ---
HPI - <Amy Mccollum PA-C - Last Filed: 10/06/24 14:17> General Chief complaint: OB/Uterine Contractions Stated complaint: ~6 wks preg- cramping/bleeding increasing Time Seen by Provider: 10/06/24 11:19 Source: patient Mode of arrival: Ambulatory Limitations: no limitations History of Present Illness HPI Narrative: Ms. Ward is a very pleasant 23-year-old female, currently reported to be 6 weeks who presents to the emergency department for vaginal spotting and cramping in early since this morning. Patient reports the 1st day of her last menstrual period was August 26, making her estimated gestational age 5 weeks and 5 days, and she had a positive home test on September 26. 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 Sherif James delivered her 2nd child in December of 2023. States that she was feeling in her normal state of health, had sexual intercourse with her partner last night, without any pain or discomfort however when she woke up this morning she had light vaginal spotting and since coming to the emergency department she has had slight increase in spotting with passage of small clots as well. Reports some very mild lower abdominal cramping that started on the right side his since traveled to the left side but is not severe. She denies abdominal pain, nausea, vomiting, diarrhea, constipation, dysuria, abnormal vaginal discharge, fevers, chills. She is here with the baby's father. Related Data Home Medications Medication Instructions Recorded Confirmed vitamin-ferrous sulfate 1 tab PO DAILY 06/23/23 01/24/24 27 mg iron-folic acid 0.8 mg tablet Allergies Allergy/AdvReac Type Severity Reaction Status Date / Time Sulfa (Sulfonamide Allergy Intermediate Hives Verified 03/06/24 10:47 Antibiotics) Review of Systems <Amy Mccollum PA-C - Last Filed: 10/06/24 14:17> Review of Systems ROS Unobtainable: All systems reviewed & are unremarkable except as noted in HPI and below Exam <Amy Mccollum PA-C - Last Filed: 10/06/24 14:17> Narrative Exam Narrative: GENERAL: 23 year old patient appears stated age. Well-developed patient, in no acute distress. HEAD: Atraumatic. Normocephalic. EYES: No scleral icterus. No injection or drainage. CARDIOVASCULAR: Regular rate and rhythm. RESPIRATORY: ?Nonlabored respirations. ?Speaking in clear, full sentences. ?Clear to auscultation. Breath sounds equal bilaterally. No wheezes, rales, or rhonchi. ? GASTROINTESTINAL: Abdomen soft, non-tender, nondistended. Normal bowel sounds. Patient gave verbal consent for pelvic examination, female nurse support services coordinator was present for exam. Patient has normal-appearing external genitalia, she had large cotton swabs worth of BRB with minimal clots present in the vaginal vault, no large surge of bleeding after bearing down. Cervical os is not grossly dilated. No adnexal tenderness, no cervical motion tenderness on bimanual examination. EXTREMITIES: No edema or joint tenderness. NEURO: AOx3. ?Clear speech. ?Moves all 4 extremities appropriately. SKIN: No rash or erythema of visible areas Initial Vital Signs Initial Vital Signs: Vital Signs Temperature 96.9 F L 10/06/24 10:36 Pulse Rate 84 10/06/24 10:36 Respiratory Rate 18 10/06/24 10:36 Blood Pressure 128/60 10/06/24 10:36 Pulse Oximetry 99 10/06/24 10:36 Oxygen Delivery Method Room Air 10/06/24 10:36 <Leah Kwon DO - Last Filed: 10/09/24 01:24> Initial Vital Signs Initial Vital Signs: Vital Signs Temperature 96.9 F L 10/06/24 10:36 Pulse Rate 84 10/06/24 10:36 Respiratory Rate 18 10/06/24 10:36 Blood Pressure 128/60 10/06/24 10:36 Pulse Oximetry 99 10/06/24 10:36 Oxygen Delivery Method Room Air 10/06/24 10:36 Course <Amy Mccollum PA-C - Last Filed: 10/06/24 14:17> Orders Ordered: ED Orders 10/06/24 10:40 Urine Microscopic Stat 10/06/24 11:02 US OB <= 14 weeks fetus Stat 10/06/24 11:10 ABO RH Type Stat Complete Blood Count AUTO DIFF Stat Comprehensive Metabolic Panel Stat HCG Quantitative /Beta subunit Stat 10/06/24 13:07 Chlamydia/Gonoc/Myco Genital Stat Genital Culture Stat Wet Prep Tric BV S[place] Stat Vital Signs Vital signs: Vital Signs - 8 hr 10/06/24 10:36 Temperature 96.9 F L Pulse Rate 84 Respiratory Rate 18 Blood Pressure 128/60 Pulse Oximetry 99 Oxygen Delivery Method Room Air <Leah Kwon DO - Last Filed: 10/09/24 01:24> Orders Ordered: ED Orders 10/06/24 10:40 Urine Microscopic Stat 10/06/24 11:02 US OB <= 14 weeks fetus Stat 10/06/24 11:10 ABO RH Type Stat Complete Blood Count AUTO DIFF Stat Comprehensive Metabolic Panel Stat HCG Quantitative /Beta subunit Stat 10/06/24 13:07 Chlamydia/Gonoc/Myco Genital Stat Genital Culture Stat Wet Prep Tric BV [place] Stat Vital Signs Vital signs: Vital Signs - 8 hr 10/06/24 10:36 Temperature 96.9 F L Pulse Rate 84 Respiratory Rate 18 Blood Pressure 128/60 Pulse Oximetry 99 Oxygen Delivery Method Room Air MDM - OB/Uterine Contractions <Amy Mccollum PA-C - Last Filed: 10/06/24 14:17> Medical Records Attestation: I reviewed the patient's medical records. Medical records narrative: Vaginal delivery with Dr. Gorman later 01/24/2024 with shoulder dystocia. Lab Data 10/06/24 11:10 10/06/24 11:10 Labs: Lab Results 10/06/24 10/06/24 Range/Units 10:40 11:10 WBC 4.6 (4.5-11.0) X10^3/uL RBC 4.40 (4.0-5.2) X10^6/uL Hgb 12.3 (12.0-16.0) g/dL Hct 38.0 (36-46) % MCV 86.4 (80-100) fL MCH 28.0 (26-34) PG MCHC 32.4 (30-36) % RDW 15.3 H (11.6-14.8) % Plt Count 389 (150-400) X10^3/uL Neut % (Auto) 46.7 L (50-75) % Lymph % (Auto) 37.6 (25-40) % [place] % (Auto) 10.8 (3-14) % Eos % (Auto) 3.5 (2-4) % Baso % (Auto) 1.4 (0-2) % Neut # (Auto) 2100 (1327-0161) /uL Lymph # (Auto) 1700 (1631-3204) /uL [place] # (Auto) 500 (0-900) /uL Eos # (Auto) 200 (0-450) /uL Baso # (Auto) 100 (0-100) /uL Sodium 137 (137-145) mmol/L Potassium 4.0 (3.4-5.1) mmol/L Chloride 105 (98-107) mmol/L Carbon Dioxide 22 (22-32) mmol/L BUN 12 (7-17) mg/dL Creatinine 0.85 (0.52-1.04) mg/dL Estimated GFR > 60 (>60) mL/min BUN/Creatinine Ratio 14.1 (6-22) Glucose 90 (70-100) mg/dL Calcium 9.3 (8.4-10.2) mg/dL Total Bilirubin 0.6 (0.2-1.3) mg/dL AST 20 (14-36) IU/L ALT 15 (<35) IU/L Alkaline Phosphatase 49 (38-126) U/L Total Protein 7.8 (6.3-8.2) g/dL Albumin 4.5 (3.5-5.0) g/dL Globulin 3.3 (1.7-4.1) g/dL Albumin/Globulin Ratio 1.4 (1.0-2.8) HCG, Quant 342.24 mIU/mL Urine RBC 5-10/hpf H (0-5/HPF) Urine WBC 1-5/hpf (0-5/HPF) Ur Squamous Epith Cells 1-5 /hpf (0-5/HPF) Urine Bacteria Occasional (0-1) (None) Ur Culture Indicated? Cult not indicated Vol Urine Centrifuged 10ml (spun) Blood Type O Positive Point of Care Testing Test Results Positive Urine Dip Bedside Urine Glucose Negative Bedside Urine Bilirubin - Negative Bedside Urine Ketone - Negative Urine Specific [place] 1.030 Bedside Urine Occult Blood ++ Bedside Urine pH 6.0 Bedside Urine Protein - Negative Bedside Urine Urobilinogen - Negative Bedside Urine Nitrite - Negative Bedside Urine Leukocytes - Negative Esterase MDM Narrative Medical decision making narrative: 23-year-old female, active duty [employer], currently reported to be 6 weeks who presents to the emergency department for vaginal spotting and cramping in early since this morning. Patient reports the 1st day of her last menstrual period was August 26, making her estimated gestational age 5 weeks and 5 days. Differential diagnosis includes but is not limited to , threatened , ectopic , subchorionic hematoma, gestational trophoblastic disease, molar , cervicitis, fibroids, implantation bleeding, UTI, etc. On exam patient is in no acute distress, nontoxic-appearing, all vital signs within normal limits. Abdomen soft and nontender, reports mild bleeding/spotting with occasional light cramping but no pain at this time. We will proceed with beta hCG, CBC, urinalysis, pelvic ultrasound. Patient reports minimal bleeding and no pain during pelvic ultrasound. Labs reveal normal WBC count 4.6, hemoglobin 12.3, hematocrit 38.0. Normal electrolytes with a sodium of 137, potassium of 4, BUN 12, creatinine 0.85. Glucose 90. Blood type positive, no indication for RhoGAM. HCG quant is only 342.24, well below the discriminatory zone for transvaginal ultrasound. Urinalysis reveals 5-10 urine RBCs, 1-5 WBCs, 1-5 squamous epithelial cells, likely all contamination from the vaginal bleeding. We will proceed with a pelvic exam to evaluate bleeding, cervical os. Patient would like swabs for infection but denies any abnormal discharge. Ultrasound reveals findings concerning for spontaneous in progress, follow up with serial beta hCG and follow up ultrasound is recommended for evaluation of viability. Discussed case with OBGYN on-call Dr. Cage. She we will order outpatient 48 hour beta hCG recheck and send it to Dr. James. Discussed all lab and imaging findings with the patient and provided her with a printed copy of imaging. We discussed the diagnosis of threatened miscarriage in the importance of 48 hour follow up for repeat beta hCG. Discussed strict ED return precautions. Patient verbalized understanding all information is agreeable with the plan. She is stable for discharge home. <Leah Kwon, DO - Last Filed: 10/09/24 01:24> Lab Data Labs: Lab Results 10/06/24 10/06/24 Range/Units 10:40 11:10 WBC 4.6 (4.5-11.0) X10^3/uL RBC 4.40 (4.0-5.2) X10^6/uL Hgb 12.3 (12.0-16.0) g/dL Hct 38.0 (36-46) % MCV 86.4 (80-100) fL MCH 28.0 (26-34) PG MCHC 32.4 (30-36) % RDW 15.3 H (11.6-14.8) % Plt Count 389 (150-400) X10^3/uL Neut % (Auto) 46.7 L (50-75) % Lymph % (Auto) 37.6 (25-40) % [place] % (Auto) 10.8 (3-14) % Eos % (Auto) 3.5 (2-4) % Baso % (Auto) 1.4 (0-2) % Neut # (Auto) 2100 (3536-7480) /uL Lymph # (Auto) 1700 (6276-1364) /uL [place] # (Auto) 500 (0-900) /uL Eos # (Auto) 200 (0-450) /uL Baso # (Auto) 100 (0-100) /uL Sodium 137 (137-145) mmol/L Potassium 4.0 (3.4-5.1) mmol/L Chloride 105 (98-107) mmol/L Carbon Dioxide 22 (22-32) mmol/L BUN 12 (7-17) mg/dL Creatinine 0.85 (0.52-1.04) mg/dL Estimated GFR > 60 (>60) mL/min BUN/Creatinine Ratio 14.1 (6-22) Glucose 90 (70-100) mg/dL Calcium 9.3 (8.4-10.2) mg/dL Total Bilirubin 0.6 (0.2-1.3) mg/dL AST 20 (14-36) IU/L ALT 15 (<35) IU/L Alkaline Phosphatase 49 (38-126) U/L Total Protein 7.8 (6.3-8.2) g/dL Albumin 4.5 (3.5-5.0) g/dL Globulin 3.3 (1.7-4.1) g/dL Albumin/Globulin Ratio 1.4 (1.0-2.8) HCG, Quant 342.24 mIU/mL Urine RBC 5-10/hpf H (0-5/HPF) Urine WBC 1-5/hpf (0-5/HPF) Ur Squamous Epith Cells 1-5 /hpf (0-5/HPF) Urine Bacteria Occasional (0-1) (None) Ur Culture Indicated? Cult not indicated Vol Urine Centrifuged 10ml (spun) Blood Type O Positive Point of Care Testing Test Results Positive Urine Dip Bedside Urine Glucose Negative Bedside Urine Bilirubin - Negative Bedside Urine Ketone - Negative Urine Specific [place] 1.030 Bedside Urine Occult Blood ++ Bedside Urine pH 6.0 Bedside Urine Protein - Negative Bedside Urine Urobilinogen - Negative Bedside Urine Nitrite - Negative Bedside Urine Leukocytes - Negative Esterase Discharge Plan Departure Patient Disposition: Home Clinical Impression: Threatened miscarriage, Vaginal bleeding affecting early Instructions: DI for Vaginal Bleeding During Activity Restrictions/Additional Instructions: Dear Ms. Ward, Thank you for coming to the emergency department. Today you were evaluated for vaginal spotting in early . Your Blood HCG level was 342. Your ultrasound was concerning for possible early miscarriage. I spoke with our on-call OBGYN, Dr. Cage, who ordered for you to have a 48 hour blood hCG test performed for further monitoring. This result will be sent to Dr. James. On Tuesday morning please call Dr. James's office to schedule an appointment and also come to [facility] to have your blood work done. In the meantime please rest, hydrate, use Tylenol if needed for pain, and return to the emergency department if you develop any new or worsening symptoms, fevers, severe pain, or bleeding that is soaking a pad every hour or less. Please follow up with your primary care doctor within the next 2-3 days for ER follow-up. (If you do not have a PCP you can call [phone]. ?to schedule an appointment with an [facility] Primary Care Provider) IF YOU DEVELOP ANY NEW OR WORSENING SYMPTOMS, RETURN TO THE ER! Please read the attached instructions, they highlight more specific treatments and interventions for you at home. Thank you for letting me participate in your care, Amy Mccollum PA-C Prescriptions: No Action vit-ferrous sulfat-FA 27 mg iron- 0.8 mg tablet 1 tab PO DAILY Referrals: Sherif James MD [Primary Care Provider] - Stand Alone Forms: Patient Portal/API/Survey ED Sign-out <Leah Kwon DO - Last Filed: 10/09/24 01:24> Cosign ED Attending Celeste Attestation: I was available for consultation.
[2024-10-06 11:55] LABS: Alanine Aminotransferase 15 IU/L (<35); Albumin 4.5 g/dL (3.5-5.0); Albumin Globulin Ratio 1.4 (1.0-2.8); Alkaline Phosphatase 49 U/L (38-126); Aspartate Aminotransferase 20 IU/L (14-36); BUN Creatinine Ratio 14.1 (6-22); Bilirubin Total 0.6 mg/dL (0.2-1.3); Blood Urea Nitrogen 12 mg/dL (7-17); Calcium 9.3 mg/dL (8.4-10.2); Carbon Dioxide 22 mmol/L (22-32); Chloride 105 mmol/L (98-107); Estimated Glomerular Filt Rate > 60 mL/min (>60); Globulin 3.3 g/dL (1.7-4.1); Glucose 90 mg/dL (70-100); HEMOLYSIS < 15 (0-50); Sodium 137 mmol/L (137-145); Total Protein 7.8 g/dL (6.3-8.2)
--- NOTE | 2024-10-06 12:01 | PC.NURSE ---
takenfor US in WC.
[2024-10-06 12:11] LABS: HCG Quantitative /Beta subunit 342.24 mIU/mL
[2024-10-06 14:32] VITALS: BP 128/62; PULSE 78; RESP 15; TEMP 36.6; O2SAT 99
[2024-10-09 19:38] LABS: Chlamydia trachomatis Negative (Negative); Mycoplasma genitalium Negative (Negative); Neisseria gonorrhoeae Negative (Negative)
== END 2024-10-06 14:33 | disposition home or self-care (01) ==
PROVIDERS: Emergency Medicine; Emergency Provider Physician Assistant; PCP Family Medicine
DX: O20.0 Threatened abortion (principal); O26.851 Spotting complicating pregnancy, first trimester; Z3A.01 Less than 8 weeks gestation of pregnancy
CPT/HCPCS: 36415; 76801; 76817; 80053; 81003; 81015; 81025; 84702; 85025; 86900; 86901; 87070; 87077; 87147; 87205; 87210; 87491; 87563; 87591; 99283; 99284

== ENCOUNTER → 2024-10-08 14:27 | Outpatient (CLI) | payer OTHER, SELFPAY | LOC: LAB 14:28 | PROVIDERS: PCP Family Medicine; Referring Provider Student in an Organized Health Care Education/Training Program; Visit Provider Student in an Organized Health Care Education/Training Program | DX: Z34.93 Encounter for supervision of normal pregnancy, unspecified, third trimester (principal); Z3A.39 39 weeks gestation of pregnancy | CPT/HCPCS: 36415; 84702 ==